=== PATIENT | female | born 1940 | race Hispanic/Latino ===

== ENCOUNTER 2024-03-10 11:45 | Emergency (ER) | payer OTHER ==
--- OUTSIDE RECORDS SUMMARY | 2024-03-10 11:52 | XMS REPORT | Continuity of Care Document ---
Author Name Unknown Address [address] [facility] [address] [place] [address] [facility] thconnect Address [address] [facility] [place] [address] Care Team Providers Care Rehabilitation Counsellor Name Role Phone Mikael Bateman Primary Care Physician [phone] Mikael Bateman Attending Clinician Unavailable MICKEY COLMENARES Attending Clinician Unavailable [email or web address] Attending Clinician UnavailMARIELA Sequeira Attending Clinician Unavailable Leyda Abel MA Attending Clinician Unavailab Danii OBANDO, Mili Koroma Attending Clinician Unavail Joanna Montes De Oca RN Attending Clinician Miguel burks CO19, NURSE-BRAXTON Attending Clinician UnavailMICKEY Vigil M.D. Attending Clinician Shell guadalupe [email or web address] Admitting Clinician Miguel burks Payers Payer Name Policy Type Policy Number Effective Date Expirati on Date Source MEDICARE PART A AND B [id number] 2006 00:00:00 2006 00:00:00 [employer] MEDICARE PPO [id number] 2022 00:00:00 MEDICARE BECKI HALEY [id number] [facility] A[employer] C1 [id number] [facility] Problems Condition Name Condition Details Condition Category Status Onset Date Resolution Date Last Treatment Date Treating Clinician Comments Source Vitamin B12 deficiency anemia Vitamin B12 deficiency anemia Disease Active 2020-09 00:00: 00 [facility] Major depressive disorder, single episode, unspecifie d Major depressive disorder, single episode, unspecifie d Disease Active 2020-09 00:00: 00 [facility] Encounter for administra tion of COVID-19 vaccine Encounter for administra tion of COVID-19 vaccine Disease Active 11-01 00:00: 00 [facility] Disorder involving the immune mechanism, 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, unspecifie d Disease Active 2018-09 00:00: 00 [facility] Myositis, unspecifie d Myositis, unspecifie d Disease Active 2013-09 00:00: 00 [facility] Osteoarthr itis of multiple joints Osteoarthr itis of multiple joints Problem Active [facility] [id number] +5th digit eff 06/22/20*CK D (chronic kidney disease), stage III Problem Active [facility] Malaise and fatigue Malaise and fatigue Problem Active [facility] [id number] Current moderate episode of major depressive disorder without prior episode Problem Active [facility] Gastro-eso phageal reflux disease without esophagiti s Gastro-eso phageal reflux disease without esophagiti s Problem Active [facility] Rheumatoid arthritis Rheumatoid arthritis Problem Active [facility] Hyperlipid emia Hyperlipid emia Problem Active [facility] 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 Vitamin B12 deficiency anemia Problem Active [facility] [id number] Anemia, unspecifie d type Problem Active [facility] [id number] Anorexia Problem Active [facility] Depression Depression Problem Active [facility] Vitamin D deficiency Vitamin D deficiency Problem Active [facility] Myalgia and myositis Myalgia and myositis [facility] Vitamin D deficiency Vitamin D deficiency Problem Active [facility] Rheumatoid arthritis Rheumatoid arthritis Problem Active [facility] Immunosupp ression Immunosupp ression Problem Active [facility] Encounter for administra tion of COVID-19 vaccine Encounter for administra tion of COVID-19 vaccine Problem Active [facility] Social History Social Habit Start Date Stop Date Quantity Comments Source History of Tobacco Use [facility] Sex Assigned At [facility] Sexual orientation [facility] Alcohol intake 2023-08-18 00:00:00 2023-08-18 00:00:00 Lifetime non-drinker (finding) [facility] History of Social function 2023-08-18 00:00:00 2023-08-18 00:00:00 [facility] Exposure to SARS-CoV-2 (event) 2023-02-01 00:00:00 2023-02-11 09:42:00 Not sure [facility] Tobacco use and exposure 2021-08-14 00:00:00 2021-08-14 00:00:00 Smokeless tobacco non-user [facility] Smoking Status Start Date Stop Date Source Tobacco smoking consumption unknown [facility] Never smoked tobacco [facility] Medications Ordered Medication Name Filled Medication Name Start Date Stop Date Current Medication? Ordering Clinician Indication Dosage Frequency Signature (SIG) Comments Components Source folic acid (Folvite) 1 MG tablet 2022-09 00:00: 00 Yes [id number] 2000ug QD Take 2 tablets (2,000 mcg total) by mouth 1 (one) time each day. [facility] meloxicam (Mobic) 7.5 MG tablet 2022-09 00:00: 00 Yes [id number] TAKE 1 TABLET BY MOUTH TWICE A DAY IF NEEDED FOR MILD PAIN. [facility] methotrexat e 2.5 MG tablet 2022-09 00:00: 00 Yes [id number] 10mg Take 4 tablets (10 mg total) by mouth 1 (one) time per week. Follow directions carefully, and ask to explain any part you do not understand . Take exactly as directed. [facility] tiZANidine (Zanaflex) 4 MG tablet 2022-09 00:00: 00 Yes [id number] 4mg QD Take 1 tablet (4 mg total) by mouth at night if needed for muscle spasms. [facility] methotrexat e 2.5 MG tablet 02-11 00:00: 00 08-18 00:00 :00 No [id number] 10mg Take 4 tablets (10 mg total) by mouth 1 (one) time per week. Follow directions carefully, and ask to explain any part you do not understand . Take exactly as directed. [facility] folic acid (Folvite) 1 MG tablet 02-11 00:00: 00 08-18 00:00 :00 No [id number] 2000ug QD Take 2 tablets (2,000 mcg total) by mouth 1 (one) time each day. [facility] methotrexat e 2.5 MG tablet 01-28 00:00: 00 02-11 00:00 :00 No [id number] TAKE 4 TABLETS BY MOUTH ONE TIME PER WEEK [facility] tiZANidine (Zanaflex) 4 MG tablet 01-14 00:00: 00 08-18 00:00 :00 No [id number] 4mg QD TAKE 1 TABLET (4 MG TOTAL) BY MOUTH AT NIGHT IF NEEDED FOR MUSCLE SPASMS. [facility] meloxicam (Mobic) 7.5 MG tablet 12-13 00:00: 00 08-18 00:00 :00 No [id number] TAKE 1 TABLET BY MOUTH TWICE A DAY IF NEEDED FOR MILD PAIN. [facility] Cobalamin Combination s (Vitamin Q37-Cogmg Acid) 500-400 MCG tablet 2021-09 13:46: 44 Yes one [facility] meloxicam (Mobic) 7.5 MG tablet 2021-09 00:00: 00 Yes [id number] 7.5mg Q.5D Take 1 tablet (7.5 mg total) by mouth 2 (two) times a day if needed for mild pain. [facility] methotrexat e 2.5 MG tablet 2021-09 00:00: 00 Yes [id number] TAKE 4 TABLETS BY MOUTH ONE TIME PER WEEK [facility] tiZANidine (Zanaflex) 4 MG tablet 2021-09 00:00: 00 Yes [id number] 4mg QD Take 1 tablet (4 mg total) by mouth at night if needed for muscle spasms. [facility] folic acid (Folvite) 1 MG tablet 2021-09 00:00: 00 02-11 00:00 :00 No [id number] 2000ug QD Take 2 tablets (2,000 mcg total) by mouth 1 (one) time each day. [facility] Cobalamin Combination s (Vitamin I50-Fhemd Acid) 500-400 MCG tablet 02-11 15:09: 16 Yes one [facility] meloxicam (Mobic) 7.5 MG tablet 02-11 15:09: 16 Yes 1 tablet [facility] citalopram (CeleXA) 10 MG tablet 02-11 15:08: 37 02-11 00:00 :00 No 10mg 10 mg. [facility] raNITIdine HCl (ZANTAC PO) 02-11 15:07: 58 02-11 00:00 :00 No TAKE 1 TABLET BY MOUTH TWICE A DAY [facility] methotrexat e 2.5 MG tablet 02-11 00:00: 00 Yes [id number] TAKE 4 TABLETS BY MOUTH ONCE A WEEK [facility] folic acid (Folvite) 1 MG tablet 02-11 00:00: 00 Yes [id number] 2000ug QD Take 2 tablets (2,000 mcg total) by mouth 1 (one) time each day. [facility] tiZANidine (Zanaflex) 2 MG tablet 02-11 00:00: 00 08-18 00:00 :00 No [id number] 4mg Take 2 tablets (4 mg total) by mouth every night. [facility] prednisoLON E acetate (Pred-Forte ) 1 % ophthalmic suspension 3-22 00:00: 00 02-11 00:00 :00 No INSTILL 1 DROP IN RIGHT EYE DAILY FOR ONE WEEK THEN STOP [facility] tiZANidine (Zanaflex) 2 MG tablet 2-04 00:00: 00 02-11 00:00 :00 No [id number] 2mg TAKE 1 TABLET (2 MG TOTAL) BY MOUTH EVERY NIGHT. [facility] Diclofenac Sodium (Voltaren) 1 % external gel 1-17 00:00: 00 Yes [id number] APPLY 2G TO 4 GM TO AFFECTED JOINTS NEEDED FOR PAIN EVERY 6 HOURS NEEDED [facility] methotrexat e 2.5 MG tablet 2020-09 2-15 00:00: 00 02-11 00:00 :00 No [id number] TAKE 4 TABLETS BY MOUTH ONCE A WEEK [facility] tiZANidine (Zanaflex) 2 MG tablet 05-07 00:00: 00 Yes [id number] 2mg TAKE 1 TABLET (2 MG TOTAL) BY MOUTH EVERY NIGHT. [facility] methotrexat e 2.5 MG tablet 03-28 00:00: 00 06-27 04:59 :00 No [id number] TAKE 4 TABLETS BY MOUTH ONCE A WEEK [facility] Cobalamin Combination s (Vitamin O10-Jatcn Acid) 500-400 MCG tablet 02-13 18:08: 33 Yes one [facility] meloxicam (Mobic) 7.5 MG tablet 02-13 18:08: 33 Yes 1 tablet [facility] raNITIdine HCl (ZANTAC PO) 02-13 18:08: 31 Yes TAKE 1 TABLET BY MOUTH TWICE A DAY [facility] citalopram (CeleXA) 10 MG tablet 02-13 18:06: 55 Yes 10mg 10 mg. [facility] Cobalamin Combination s (Vitamin Q21-Stnlh Acid) 500-400 MCG tablet 02-13 13:08: 33 Yes one [facility] meloxicam (Mobic) 7.5 MG tablet 02-13 13:08: 33 Yes 1 tablet [facility] raNITIdine HCl (ZANTAC PO) 02-13 13:08: 31 Yes TAKE 1 TABLET BY MOUTH TWICE A DAY [facility] citalopram (CeleXA) 10 MG tablet 02-13 13:06: 55 Yes 10mg 10 mg. [facility] tiZANidine (Zanaflex) 2 MG tablet 02-13 00:00: 00 05-07 00:00 :00 No [id number] 2mg Take 1 tablet (2 mg total) by mouth every night. [facility] methotrexat e 2.5 MG tablet 01-02 00:00: 00 03-28 00:00 :00 No 10mg Take 10 mg by mouth 1 (one) time per week [facility] folic acid (Folvite) 1 MG tablet 12-26 00:00: 00 Yes 2000ug QD Take 2,000 mcg by mouth 1 (one) time each day. [facility] tolterodine LA (Detrol LA) 4 MG 24 hr capsule 9-08 00:00: 00 02-11 00:00 :00 No QD Take by mouth 1 (one) time each day. [facility] tolterodine LA (Detrol LA) 2 MG 24 hr capsule 6-30 00:00: 00 02-11 00:00 :00 No QD Take by mouth 1 (one) time each day. [facility] zoster vaccine-rec ombinant adjuvanted (Shingrix) 50 MCG/0.5ML vaccine 2018-0918 00:00: 00 02-11 00:00 :00 No Inject one dose IM and another dose 2 months later by healthcare provider [facility] traMADol HCl - 50 MG Oral Tablet traMADol HCl - 50 MG Oral Tablet 2016-09 00:00: 00 Yes MICKEY COLMENARES M.D. 1 QD TAKE 1 TABLET DAILY PRN pain [facility] VESIcare 5 MG Oral Tablet VESIcare 5 MG Oral Tablet 02-21 00:00: 00 Yes [facility] Atorvastati n Calcium 10 MG Oral Tablet Atorvastati n Calcium 10 MG Oral Tablet 02-21 00:00: 00 Yes [facility] Vitamin D (Ergocalcif christ) 1.25 MG (66132 UT) Oral Capsule Vitamin D (Ergocalcif christ) 1.25 MG (80513 [facility]) Oral Capsule 03-14 00:00: 00 Yes MICKEY COLMENARES M.D. TAKE 1 CAPSULE WEEKLY. [facility] Methotrexat e 2.5 MG Oral Tablet Methotrexat e 2.5 MG Oral Tablet 2013-09 00:00: 00 Yes MICKEY COLMENARES M.D. TAKE 4 TABLETS BY MOUTH ONCE A WEEK [facility] Folic Acid 1 MG Oral Tablet Folic Acid 1 MG Oral Tablet 2013-09 00:00: 00 Yes MICKEY COLMENARES M.D. TAKE 2 TABLETS BY MOUTH EVERY DAY [facility] Cyclobenzap rine HCl - 5 MG Oral Tablet Cyclobenzap rine HCl - 5 MG Oral Tablet 2013-09 00:00: 00 Yes MICKEY COLMENARES M.D. 1 TAKE 1 TABLET BEDTIME PRN [facility] Meloxicam 7.5 MG Oral Tablet Meloxicam 7.5 MG Oral Tablet 2013-09 00:00: 00 Yes MICKEY COLMENARES M.D. Q0.5D TAKE 1 TABLET BY MOUTH TWICE DAILY NEEDED FOR PAIN AFTER MEALS [facility] Lipitor 20 MG Lipitor 20 MG No 1{table t} QD Lipitor 20 MG Cyclobenzap rine HCl 5 MG Cyclobenzap rine HCl 5 MG No 1{table t_as_ne eded} TID Cyclobenza chico HCl 5 MG Atorvastati n Calcium 20 MG Atorvastati n Calcium 20 MG No Atorvastat in Calcium 20 MG Mobic 7.5 MG Mobic 7.5 MG No 1{table t} QD Mobic 7.5 MG Vitamin B12 2500 Vitamin B12 2500 No QD Vitamin B12 2500 Folic Acid 1 MG Folic Acid 1 MG No 1{table t} QD Folic Acid 1 MG Citalopram Hydrobromid e 40 MG Citalopram Hydrobromid e 40 MG No 1{table t} QD Citalopram Hydrobromi de 40 MG Lipitor 20 MG Lipitor 20 MG No 1{table t} QD Lipitor 20 MG Cyclobenzap rine HCl 5 MG Cyclobenzap rine HCl 5 MG No 1{table t_as_ne eded} TID Cyclobenza chico HCl 5 MG Atorvastati n Calcium 20 MG Atorvastati n Calcium 20 MG No Atorvastat in Calcium 20 MG Mobic 7.5 MG Mobic 7.5 MG No 1{table t} QD Mobic 7.5 MG Folic Acid 1 MG Folic Acid 1 MG No 1{table t} QD Folic Acid 1 MG Vitamin B12 Vitamin B12 Yes Mikael Bateman one [facility] Mobic Mobic Yes Mikael Bateman 1 tablet [facility] Cyclobenzap rine HCl Cyclobenzap rine HCl Yes Mikael Bateman 1 tablet as needed [facility] Methotrexat e Methotrexat e Yes Mikael Bateman not defined [facility] Zantac Zantac Yes Mikael Bateman TAKE 1 TABLET BY MOUTH TWICE A DAY [facility] Folic Acid Folic Acid Yes Mikael Batemna 1 tablet [facility] Lipitor Lipitor Yes Mikael Bateman TAKE 1 TABLET AT BEDTIME [facility] Lipitor Lipitor Yes Mikael Bateman 1 tablet [facility] Citalopram Hydrobromid e Citalopram Hydrobromid e Yes Mikael Bateman 1 tablet [facility] Atorvastati n Calcium Atorvastati n Calcium Yes Mikael Bateman TAKE 1 TABLET AT BEDTIME [facility] Zantac 150 MG Zantac 150 MG No Zantac 150 MG tiZANidine HCl 4 MG tiZANidine HCl 4 MG No 1{table t_as_ne eded} TID tiZANidine HCl 4 MG Folic Acid 1 MG Folic Acid 1 MG No 1{table t} QD Folic Acid 1 MG Zantac 150 MG Zantac 150 MG No Zantac 150 MG Cyclobenzap rine HCl 5 MG Cyclobenzap rine HCl 5 MG No 1{table t_as_ne eded} TID Cyclobenza chico HCl 5 MG Mobic 7.5 MG Mobic 7.5 MG No 1{table t} QD Mobic 7.5 MG Atorvastati n Calcium 20 MG Atorvastati n Calcium 20 MG No Atorvastat in Calcium 20 MG Citalopram Hydrobromid e 40 MG Citalopram Hydrobromid e 40 MG No 1{table t} QD Citalopram Hydrobromi de 40 MG Zantac 150 MG Zantac 150 MG No Zantac 150 MG Cyclobenzap rine HCl 5 MG Cyclobenzap rine HCl 5 MG No 1{table t_as_ne eded} TID Cyclobenza chico HCl 5 MG Lipitor 20 MG Lipitor 20 MG No 1{table t} QD Lipitor 20 MG Folic Acid 1 MG Folic Acid 1 MG No 1{table t} QD Folic Acid 1 MG Mobic 7.5 MG Mobic 7.5 MG No 1{table t} QD Mobic 7.5 MG Citalopram Hydrobromid e 40 MG Citalopram Hydrobromid e 40 MG No 1{table t} QD Citalopram Hydrobromi de 40 MG Lipitor 20 MG Lipitor 20 MG No 1{table t} QD Lipitor 20 MG Cyclobenzap rine HCl 5 MG Cyclobenzap rine HCl 5 MG No 1{table t_as_ne eded} TID Cyclobenza chico HCl 5 MG Atorvastati n Calcium 20 MG Atorvastati n Calcium 20 MG No Atorvastat in Calcium 20 MG Mobic 7.5 MG Mobic 7.5 MG No 1{table t} QD Mobic 7.5 MG Vitamin B12 2500 Vitamin B12 2500 No QD Vitamin B12 2500 Folic Acid 1 MG Folic Acid 1 MG No 1{table t} QD Folic Acid 1 MG Citalopram Hydrobromid e 40 MG Citalopram Hydrobromid e 40 MG No 1{table t} QD Citalopram Hydrobromi de 40 MG Immunizations Ordered Immunization Name Filled Immunization Name Date Status Comments Source Fluzone Fluzone 2021-08-13 09:01:00 Completed [facility] Influenza, seasonal, injectable 2021-08-13 00:00:00 Completed [facility] Influenza, seasonal, injectable 2021-08-13 00:00:00 Completed [facility] Influenza, seasonal, injectable 2021-08-13 00:00:00 Completed [facility] [employer] COVID-19 Vacc 30 MCG/0.3ML Intramuscular Suspension 2020-11-26 15:10:00 Completed [facility] Covid-19 Pfizer SARS-CoV-2 Vaccination 2020-11-26 00:00:00 Completed [facility] Covid-19 Pfizer SARS-CoV-2 Vaccination 2020-11-26 00:00:00 Completed [facility] Covid-19 Pfizer SARS-CoV-2 Vaccination 2020-11-26 00:00:00 Completed [facility] COVID-19 Pfizer 12 & Over Vaccination (PURPLE-DILUTE) 2020-11-26 00:00:00 Completed [facility] COVID-19 Pfizer 12 & Over Vaccination (PURPLE-DILUTE) 2020-11-26 00:00:00 Completed [facility] COVID-19 Pfizer 12 & Over Vaccination (PURPLE-DILUTE) 2020-11-26 00:00:00 Completed [facility] Covid-19 Pfizer SARS-CoV-2 Vaccination 2020-11-26 00:00:00 Completed [facility] COVID-19 Pfizer 12 & Over Vaccination (PURPLE-DILUTE) 2020-11-26 00:00:00 Completed [facility] COVID-19 Pfizer 12 & Over Vaccination (PURPLE-DILUTE) 2020-11-26 00:00:00 Completed [facility] COVID-19 Pfizer 12 & Over Vaccination (PURPLE-DILUTE) 2020-11-26 00:00:00 Completed [facility] COVID-19 Pfizer 12 & Over Vaccination (PURPLE-DILUTE) 2020-11-26 00:00:00 Completed [facility] COVID-19 Pfizer 12 & Over Vaccination (PURPLE-DILUTE) 2020-11-26 00:00:00 Completed [facility] Covid-19 Pfizer SARS-CoV-2 Vaccination 2020-11-26 00:00:00 Completed [facility] Covid-19 Pfizer SARS-CoV-2 Vaccination 2020-11-26 00:00:00 Completed [facility] [employer] COVID-19 Vacc 30 MCG/0.3ML Intramuscular Suspension 2020-11-01 13:00:00 Completed [facility] Covid-19 Pfizer SARS-CoV-2 Vaccination 2020-11-01 00:00:00 Completed [facility] Covid-19 Pfizer SARS-CoV-2 Vaccination 2020-11-01 00:00:00 Completed [facility] Covid-19 Pfizer SARS-CoV-2 Vaccination 2020-11-01 00:00:00 Completed [facility] COVID-19 Pfizer 12 & Over Vaccination (PURPLE-DILUTE) 2020-11-01 00:00:00 Completed [facility] COVID-19 Pfizer 12 & Over Vaccination (PURPLE-DILUTE) 2020-11-01 00:00:00 Completed [facility] COVID-19 Pfizer 12 & Over Vaccination (PURPLE-DILUTE) 2020-11-01 00:00:00 Completed [facility] Covid-19 Pfizer SARS-CoV-2 Vaccination 2020-11-01 00:00:00 Completed [facility] COVID-19 Pfizer 12 & Over Vaccination (PURPLE-DILUTE) 2020-11-01 00:00:00 Completed [facility] COVID-19 Pfizer 12 & Over Vaccination (PURPLE-DILUTE) 2020-11-01 00:00:00 Completed [facility] COVID-19 Pfizer 12 & Over Vaccination (PURPLE-DILUTE) 2020-11-01 00:00:00 Completed [facility] COVID-19 Pfizer 12 & Over Vaccination (PURPLE-DILUTE) 2020-11-01 00:00:00 Completed [facility] COVID-19 Pfizer 12 & Over Vaccination (PURPLE-DILUTE) 2020-11-01 00:00:00 Completed [facility] Covid-19 Pfizer SARS-CoV-2 Vaccination 2020-11-01 00:00:00 Completed [facility] Covid-19 Pfizer SARS-CoV-2 Vaccination 2020-11-01 00:00:00 Completed [facility] Fluzone High-Dose 0.5 ML Intramuscular Suspension Prefilled Syringe 2020-07-07 11:12:00 Completed [facility] Influenza, High Dose Seasonal, Preservative Free 2020-07-07 00:00:00 Completed [facility] Influenza, High Dose Seasonal, Preservative Free 2020-07-07 00:00:00 Completed [facility] Influenza, High Dose Seasonal 2020-07-07 00:00:00 Completed [facility] Influenza, High Dose Seasonal (fluzone) 2020-07-07 00:00:00 Completed [facility] Influenza, High Dose Seasonal (fluzone) 2020-07-07 00:00:00 Completed [facility] Influenza, High Dose Seasonal (fluzone) 2020-07-07 00:00:00 Completed [facility] Influenza, High Dose Seasonal (fluzone) 2020-07-07 00:00:00 Completed [facility] Influenza, High Dose Seasonal, Preservative Free 2020-07-07 00:00:00 Completed [facility] Influenza, High Dose Seasonal (fluzone) 2020-07-07 00:00:00 Completed [facility] Influenza, High Dose Seasonal (fluzone) 2020-07-07 00:00:00 Completed [facility] Influenza, High Dose Seasonal (fluzone) 2020-07-07 00:00:00 Completed [facility] Influenza, High Dose Seasonal (fluzone) 2020-07-07 00:00:00 Completed [facility] Influenza, High Dose Seasonal, Preservative Free 2020-07-07 00:00:00 Completed [facility] Influenza, High Dose Seasonal, Preservative Free 2020-07-07 00:00:00 Completed [facility] FluAD FluAD 2019-08-06 10:57:00 Completed [facility] FluAD FluAD 2019-08-06 00:00:00 Completed [facility] Influenza, injectable, quadrivalent 2019-08-06 00:00:00 Completed [facility] Influenza, injectable, quadrivalent 2019-08-06 00:00:00 Completed [facility] Influenza, injectable, quadrivalent 2019-08-06 00:00:00 Completed [facility] Influenza, injectable, quadrivalent 2019-08-06 00:00:00 Completed [facility] Influenza, injectable, quadrivalent 2019-08-06 00:00:00 Completed [facility] Influenza, injectable, quadrivalent 2019-08-06 00:00:00 Completed [facility] Influenza, trivalent, adjuvanted 2019-08-06 00:00:00 Completed [facility] Influenza, injectable, quadrivalent 2019-08-06 00:00:00 Completed [facility] Influenza, trivalent, adjuvanted 2019-08-06 00:00:00 Completed [facility] Influenza, injectable, quadrivalent 2019-08-06 00:00:00 Completed [facility] Influenza, trivalent, adjuvanted 2019-08-06 00:00:00 Completed [facility] Fluzone Quadrivalent 0.5 ML Intramuscular Suspension 2018-06-29 11:15:00 Completed [facility] Influenza, injectable, quadrivalent, preservative free 2018-06-29 00:00:00 Completed [facility] Influenza, injectable, quadrivalent, preservative free 2018-06-29 00:00:00 Completed [facility] Influenza, injectable, quadrivalent, preservative free 2018-06-29 00:00:00 Completed [facility] Influenza, injectable, quadrivalent, preservative free (afluria, fluarix, flulaval, fluzone) 2018-06-29 00:00:00 Completed [facility] Influenza, injectable, quadrivalent, preservative free (afluria, fluarix, flulaval, fluzone) 2018-06-29 00:00:00 Completed [facility] Influenza, injectable, quadrivalent, preservative free (afluria, fluarix, flulaval, fluzone) 2018-06-29 00:00:00 Completed [facility] Influenza, injectable, quadrivalent, preservative free (afluria, fluarix, flulaval, fluzone) 2018-06-29 00:00:00 Completed [facility] Influenza, injectable, quadrivalent, preservative free (afluria, fluarix, flulaval, fluzone) 2018-06-29 00:00:00 Completed [facility] Influenza, injectable, quadrivalent, preservative free 2018-06-29 00:00:00 Completed [facility] Influenza, injectable, quadrivalent, preservative free (afluria, fluarix, flulaval, fluzone) 2018-06-29 00:00:00 Completed [facility] Influenza, injectable, quadrivalent, preservative free (afluria, fluarix, flulaval, fluzone) 2018-06-29 00:00:00 Completed [facility] Influenza, injectable, quadrivalent, preservative free (afluria, fluarix, flulaval, fluzone) 2018-06-29 00:00:00 Completed [facility] Influenza, injectable, quadrivalent, preservative free 2018-06-29 00:00:00 Completed [facility] Influenza, injectable, quadrivalent, preservative free 2018-06-29 00:00:00 Completed [facility] Fluzone High-Dose 0.5 ML Intramuscular Suspension Prefilled Syringe 2017-06-23 15:05:00 Completed [facility] Influenza, High Dose Seasonal, Preservative Free 2017-06-23 00:00:00 Completed [facility] Influenza, High Dose Seasonal, Preservative Free 2017-06-23 00:00:00 Completed [facility] Influenza, High Dose Seasonal 2017-06-23 00:00:00 Completed [facility] Influenza, High Dose Seasonal (fluzone) 2017-06-23 00:00:00 Completed [facility] Influenza, High Dose Seasonal (fluzone) 2017-06-23 00:00:00 Completed [facility] Influenza, High Dose Seasonal (fluzone) 2017-06-23 00:00:00 Completed [facility] Influenza, High Dose Seasonal (fluzone) 2017-06-23 00:00:00 Completed [facility] Influenza, High Dose Seasonal, Preservative Free 2017-06-23 00:00:00 Completed [facility] Influenza, High Dose Seasonal (fluzone) 2017-06-23 00:00:00 Completed [facility] Influenza, High Dose Seasonal (fluzone) 2017-06-23 00:00:00 Completed [facility] Influenza, High Dose Seasonal (fluzone) 2017-06-23 00:00:00 Completed [facility] Influenza, High Dose Seasonal (fluzone) 2017-06-23 00:00:00 Completed [facility] Influenza, High Dose Seasonal, Preservative Free 2017-06-23 00:00:00 Completed [facility] Influenza, High Dose Seasonal, Preservative Free 2017-06-23 00:00:00 Completed [facility] Fluzone High-Dose 0.5 ML Intramuscular Suspension Prefilled Syringe 2016-06-24 11:34:00 Completed [facility] Influenza, High Dose Seasonal, Preservative Free 2016-06-24 00:00:00 Completed [facility] Influenza, High Dose Seasonal, Preservative Free 2016-06-24 00:00:00 Completed [facility] Influenza, High Dose Seasonal 2016-06-24 00:00:00 Completed [facility] Influenza, High Dose Seasonal (fluzone) 2016-06-24 00:00:00 Completed [facility] Influenza, High Dose Seasonal (fluzone) 2016-06-24 00:00:00 Completed [facility] Influenza, High Dose Seasonal (fluzone) 2016-06-24 00:00:00 Completed [facility] Influenza, High Dose Seasonal (fluzone) 2016-06-24 00:00:00 Completed [facility] Influenza, High Dose Seasonal (fluzone) 2016-06-24 00:00:00 Completed [facility] Influenza, High Dose Seasonal, Preservative Free 2016-06-24 00:00:00 Completed [facility] Influenza, High Dose Seasonal (fluzone) 2016-06-24 00:00:00 Completed [facility] Influenza, High Dose Seasonal (fluzone) 2016-06-24 00:00:00 Completed [facility] Influenza, High Dose Seasonal (fluzone) 2016-06-24 00:00:00 Completed [facility] Influenza, High Dose Seasonal, Preservative Free 2016-06-24 00:00:00 Completed [facility] Influenza, High Dose Seasonal, Preservative Free 2016-06-24 00:00:00 Completed [facility] Fluzone High-Dose SUSP 2015-06-27 10:53:00 Completed [facility] Influenza, High Dose Seasonal, Preservative Free 2015-06-27 00:00:00 Completed [facility] Influenza, High Dose Seasonal, Preservative Free 2015-06-27 00:00:00 Completed [facility] Influenza, High Dose Seasonal 2015-06-27 00:00:00 Completed [facility] Influenza, High Dose Seasonal (fluzone) 2015-06-27 00:00:00 Completed [facility] Influenza, High Dose Seasonal (fluzone) 2015-06-27 00:00:00 Completed [facility] Influenza, High Dose Seasonal (fluzone) 2015-06-27 00:00:00 Completed [facility] Influenza, High Dose Seasonal (fluzone) 2015-06-27 00:00:00 Completed [facility] Influenza, High Dose Seasonal (fluzone) 2015-06-27 00:00:00 Completed [facility] Influenza, High Dose Seasonal, Preservative Free 2015-06-27 00:00:00 Completed [facility] Influenza, High Dose Seasonal (fluzone) 2015-06-27 00:00:00 Completed [facility] Influenza, High Dose Seasonal (fluzone) 2015-06-27 00:00:00 Completed [facility] Influenza, High Dose Seasonal (fluzone) 2015-06-27 00:00:00 Completed [facility] Influenza, High Dose Seasonal, Preservative Free 2015-06-27 00:00:00 Completed [facility] Influenza, High Dose Seasonal, Preservative Free 2015-06-27 00:00:00 Completed [facility] Influenza 2014-08-22 15:06:00 Completed [facility] Influenza, Unspecified 2014-08-22 00:00:00 Completed [facility] Influenza, Unspecified 2014-08-22 00:00:00 Completed [facility] Influenza, Unspecified 2014-08-22 00:00:00 Completed [facility] Influenza, Unspecified 2014-08-22 00:00:00 Completed [facility] Influenza, Unspecified 2014-08-22 00:00:00 Completed [facility] Influenza, Unspecified 2014-08-22 00:00:00 Completed [facility] Influenza, Unspecified 2014-08-22 00:00:00 Completed [facility] Influenza, Unspecified 2014-08-22 00:00:00 Completed [facility] Influenza, Unspecified 2014-08-22 00:00:00 Completed [facility] Influenza, Unspecified 2014-08-22 00:00:00 Completed [facility] Influenza, Unspecified 2014-08-22 00:00:00 Completed [facility] Influenza, Unspecified 2014-08-22 00:00:00 Completed [facility] Influenza, Unspecified 2014-08-22 00:00:00 Completed [facility] Influenza, Unspecified 2014-08-22 00:00:00 Completed [facility] FluAD FluAD Unknown Completed [facility] Fluzone Fluzone Unknown Completed [facility] FluAD FluAD Unknown [facility]pleted [facility] Fluzone Fluzone Unknown Completed [facility] FluAD FluAD Unknown Completed [facility] Fluzone Fluzone Unknown Completed [facility] FluAD FluAD Unknown Completed [facility] Fluzone Fluzone Unknown Completed [facility] COVID-19 Pfizer 12 & Over Vaccination (PURPLE-DILUTE) Unknown Completed [facility] COVID-19 Pfizer 12 & Over Vaccination (PURPLE-DILUTE) Unknown Completed [facility] Influenza, High Dose Seasonal (fluzone) Unknown Completed [facility] Influenza, High Dose Seasonal (fluzone) Unknown Completed [facility] Influenza, High Dose Seasonal (fluzone) Unknown Completed [facility] Influenza, High Dose Seasonal (fluzone) Unknown Completed [facility] Influenza, injectable, quadrivalent, preservative free (afluria, fluarix, flulaval, fluzone) Unknown Completed [facility] Influenza, Unspecified Unknown Completed [facility] Influenza, injectable, quadrivalent Unknown Completed [facility] Influenza, trivalent, adjuvanted Unknown Completed [facility] Influenza, seasonal, injectable Unknown Completed [facility] COVID-19 Pfizer 12 & Over Vaccination (PURPLE-DILUTE) Unknown Completed [facility] COVID-19 Pfizer 12 & Over Vaccination (PURPLE-DILUTE) Unknown Completed [facility] Influenza, High Dose Seasonal (fluzone) Unknown Completed [facility] Influenza, High Dose Seasonal (fluzone) Unknown Completed [facility] Influenza, High Dose Seasonal (fluzone) Unknown Completed [facility] Influenza, High Dose Seasonal (fluzone) Unknown Completed [facility] Influenza, injectable, quadrivalent, preservative free (afluria, fluarix, flulaval, fluzone) Unknown Completed [facility] Influenza, Unspecified Unknown Completed [facility] Influenza, injectable, quadrivalent Unknown Completed [facility] Influenza, trivalent, adjuvanted Unknown Completed [facility] Influenza, seasonal, injectable Unknown Completed [facility] Vital Signs Vital Name Observation Time Observation Value Comments S ource height 2023-10-29 13:50:00 60 [in_i] [facility] weight 2023-10-29 13:50:00 103.8 [lb_av] [facility] temperature 2023-10-29 13:50:00 97.2 [degF] [facility] bmi 2023-10-29 13:50:00 20.27 kg/m2 [facility] oximetry 2023-10-29 13:50:00 97 % [facility] respiratory rate 2023-10-29 13:50:00 17 /min [facility] blood pressure systolic 2023-10-29 13:50:00 133 mm[Hg] [facility] blood pressure diastolic 2023-10-29 13:50:00 70 mm[Hg] [facility] height 2023-09-29 13:00:00 60 [in_i] [facility] weight 2023-09-29 13:00:00 104.8 [lb_av] [facility] temperature 2023-09-29 13:00:00 97.6 [degF] [facility] bmi 2023-09-29 13:00:00 20.47 kg/m2 [facility] oximetry 2023-09-29 13:00:00 93 % [facility] blood pressure systolic 2023-09-29 13:00:00 130 mm[Hg] [facility] blood pressure diastolic 2023-09-29 13:00:00 74 mm[Hg] [facility] height 2023-09-29 13:00:00 60 [in_i] [facility] weight 2023-09-29 13:00:00 104.8 [lb_av] [facility] temperature 2023-09-29 13:00:00 97.6 [degF] [facility] bmi 2023-09-29 13:00:00 20.47 kg/m2 [facility] oximetry 2023-09-29 13:00:00 93 % [facility] blood pressure systolic 2023-09-29 13:00:00 130 mm[Hg] [facility] blood pressure diastolic 2023-09-29 13:00:00 74 mm[Hg] [facility] Systolic blood pressure 2023-08-18 17:09:00 148 mm[Hg] [facility] Diastolic blood pressure 2023-08-18 17:09:00 71 mm[Hg] [facility] Heart rate 2023-08-18 17:09:00 71 /min [facility] Body temperature 2023-08-18 17:09:00 36.5 Amanda [facility] Body height 2023-08-18 17:09:00 152.4 cm [facility] Body weight 2023-08-18 17:09:00 48.081 kg [facility] BMI 2023-08-18 17:09:00 20.70 kg/m2 [facility] Systolic blood pressure 2023-02-11 15:17:00 163 mm[Hg] [facility] Diastolic blood pressure 2023-02-11 15:17:00 73 mm[Hg] [facility] Heart rate 2023-02-11 15:17:00 62 /min [facility] Body temperature 2023-02-11 15:17:00 36.61 Amanda [facility] Respiratory rate 2023-02-11 15:17:00 12 /min [facility] Body height 2023-02-11 15:17:00 152.4 cm [facility] Body weight 2023-02-11 15:17:00 48.535 kg [facility] BMI 2023-02-11 15:17:00 20.90 kg/m2 [facility] Oxygen saturation in Arterial blood by Pulse oximetry 2023-02-11 15:17:00 98 /min [facility] Systolic blood pressure 2022-02-11 18:02:00 144 mm[Hg] [facility] Diastolic blood pressure 2022-02-11 18:02:00 72 mm[Hg] [facility] Heart rate 2022-02-11 18:02:00 85 /min [facility] Body weight 2022-02-11 18:02:00 52.617 kg [facility] BMI 2022-02-11 18:02:00 22.65 kg/m2 [facility] Systolic blood pressure 2021-02-13 18:06:00 143 mm[Hg] [facility] Diastolic blood pressure 2021-02-13 18:06:00 72 mm[Hg] [facility] Heart rate 2021-02-13 18:06:00 61 /min [facility] Body temperature 2021-02-13 18:06:00 36.44 Amanda [facility] Body weight 2021-02-13 18:06:00 51.982 kg [facility] BMI 2021-02-13 18:06:00 22.38 kg/m2 [facility] Systolic blood pressure 2020-07-07 10:52:00 148 mm[Hg] Location: RUE; Position: Sitting [facility] Diastolic blood pressure 2020-07-07 10:52:00 74 mm[Hg] Location: RUE; Position: Sitting [facility] Body height 2020-07-07 10:52:00 60 [in_us] [facility] Weight 2020-07-07 10:52:00 116 [lb_av] [facility] Body mass index (BMI) [Ratio] 2020-07-07 10:52:00 22.66 kg/m2 [facility] Body temperature 2020-07-07 10:52:00 98.8 [degF] Method: Oral [facility] Heart Rate 2020-07-07 10:52:00 72 /min [facility] BP Systolic 2019-08-09 11:35:00 139 mm[Hg] Location: LUE; Position: Sitting [facility] BP Diastolic 2019-08-09 11:35:00 66 mm[Hg] Location: LUE; Position: Sitting [facility] Height 2019-08-09 11:35:00 60 [in_us] [facility] Weight 2019-08-09 11:35:00 113 [lb_av] [facility] Body Mass Index Calculated 2019-08-09 11:35:00 22.07 kg/m2 [facility] Temperature 2019-08-09 11:35:00 98 [degF] Method: Oral [facility] Heart Rate 2019-08-09 11:35:00 78 /min [facility] BP Systolic 2019-02-05 11:52:00 136 mm[Hg] Location: LUE; Position: Sitting [facility] BP Diastolic 2019-02-05 11:52:00 70 mm[Hg] Location: LUE; Position: Sitting [facility] Height 2019-02-05 11:52:00 60 [in_us] [facility] Weight 2019-02-05 11:52:00 107.25 [lb_av] [facility] Body Mass Index Calculated 2019-02-05 11:52:00 20.95 kg/m2 [facility] Temperature 2019-02-05 11:52:00 97.8 [degF] Method: Oral [facility] Heart Rate 2019-02-05 11:52:00 69 /min Location: L Brachial Artery; [facility] BP Systolic 2018-10-27 11:33:00 145 mm[Hg] Location: LUE; Position: Sitting [facility] BP Diastolic 2018-10-27 11:33:00 80 mm[Hg] Location: LUE; Position: Sitting [facility] Height 2018-10-27 11:33:00 60 [in_us] [facility] Weight 2018-10-27 11:33:00 111.375 [lb_av] [facility] Body Mass Index Calculated 2018-10-27 11:33:00 21.75 kg/m2 [facility] Temperature 2018-10-27 11:33:00 97.8 [degF] Method: Oral [facility] Heart Rate 2018-10-27 11:33:00 81 /min Location: L Brachial Artery; [facility] BP Systolic 2018-06-29 11:04:00 136 mm[Hg] Location: LUE; Position: Sitting [facility] BP Diastolic 2018-06-29 11:04:00 63 mm[Hg] Location: LUE; Position: Sitting [facility] Height 2018-06-29 11:04:00 60 [in_us] [facility] Weight 2018-06-29 11:04:00 110.25 [lb_av] [facility] Body Mass Index Calculated 2018-06-29 11:04:00 21.53 kg/m2 [facility] Temperature 2018-06-29 11:04:00 98.3 [degF] Method: Oral [facility] Heart Rate 2018-06-29 11:04:00 66 /min Location: L Brachial Artery; [facility] BP Systolic 2018-03-02 11:38:00 152 mm[Hg] Location: LUE; Position: Sitting [facility] BP Diastolic 2018-03-02 11:38:00 77 mm[Hg] Location: LUE; Position: Sitting [facility] Height 2018-03-02 11:38:00 60 [in_us] [facility] Weight 2018-03-02 11:38:00 108 [lb_av] [facility] Body Mass Index Calculated 2018-03-02 11:38:00 21.09 kg/m2 [facility] Temperature 2018-03-02 11:38:00 98 [degF] Method: Oral [facility] Heart Rate 2018-03-02 11:38:00 65 /min Location: L Brachial Artery; [facility] BP Systolic 2017-10-27 14:09:00 128 mm[Hg] Location: [facility]; Position: Sitting [facility] BP Diastolic 2017-10-27 14:09:00 78 mm[Hg] Location: [facility]; Position: Sitting [facility] Height 2017-10-27 14:09:00 60 [in_us] [facility] Weight 2017-10-27 14:09:00 108.125 [lb_av] [facility] Body Mass Index Calculated 2017-10-27 14:09:00 21.12 kg/m2 [facility] Temperature 2017-10-27 14:09:00 97.5 [degF] Method: Oral [facility] Heart Rate 2017-10-27 14:09:00 80 /min Location: L Brachial Artery; [facility] Procedures Procedure Date / Time Performed Performing Clinicia n Source COMPREHENSIVE METABOLIC PANEL 2023-08-18 [facility]-18 [facility] AND [facility] 2023-08-18 17:58[facility], AUTOMATED 2023-08-18 17:58[facility] HYDROXY 2023-08-18 17:58[facility]PRE[facility] METABOLIC PANEL 2023-02-11 15:39:00 [facility] C-REACTIVE PROTEIN 2023-02-11 15:39:[facility] AND DI[facility]ENTIAL 2023-02-11 15:39[facility], AUTOMATED 2023-02-11 15:39[facility] 25 HYDROXY 2023-02-11 15:39[facility] COMPRE[facility]ENS[facility] METABOLIC PANEL 2022-02-11 18:49[facility] 2022-02-11 18:49:00 [facility] CBC AND DIFFERENTIAL 2022-02-11 18:49[facility], AUTOMATED 2022-02-11 18:49:00 [facility] URINALYSIS WITH REFLEX MICROSCOPIC 2022-02-11 18:49:00 [facility] PROTEIN / CREATININE RATIO, URINE 2022-02-11 18:49:00 [facility] PROTEIN, TOTAL AND PROTEIN ELECTROPHORESIS WITH IMMUNOFIXATION 2022-02-11 18:49:00 [facility] [QL] CBC (INCLUDES DIFF/PLT) 2020-07-07 00:00:00 [facility] [QL] CMP W/EGFR 2020-07-07 00:00:00 [facility] [QL] C-REACTIVE PROTEIN 2020-07-07 00:00:00 [facility] [QL] SED RATE BY MODIFIED KENZIE 2020-07-07 00:00:00 [facility] [QL] CBC (INCLUDES DIFF/PLT) 2020-04-26 00:00:00 [facility] [QL] CMP W/EGFR 2020-04-26 00:00:00 [facility] [QLH] CBC (INCLUDES DIFF/PLT) 2019-02-05 00:00:00 [facility] [QLH] CMP W/EGFR 2019-02-05 00:00:00 [facility] [QLH] C-REACTIVE PROTEIN 2019-02-05 00:00:00 [facility] [QLH] SED RATE BY MODIFIED KENZIE 2019-02-05 00:00:00 [facility] [QLH] CBC (INCLUDES DIFF/PLT) 2018-10-27 00:00:00 [facility] [QLH] CMP W/EGFR 2018-10-27 00:00:00 [facility] [QLH] C-REACTIVE PROTEIN 2018-10-27 00:00:00 [facility] [QLH] SED RATE BY MODIFIED KENZIE 2018-10-27 00:00:00 [facility] [QLH] CBC (INCLUDES DIFF/PLT) 2018-06-29 00:00:00 [facility] [QLH] CMP W/EGFR 2018-06-29 00:00:00 [facility] [QLH] SED RATE BY MODIFIED KENZIE 2018-06-29 00:00:00 [facility] [QLH] C-REACTIVE PROTEIN 2018-06-29 00:00:00 [facility] [QLH] CBC (INCLUDES DIFF/PLT) 2018-03-02 00:00:00 [facility] [QLH] CMP W/EGFR 2018-03-02 00:00:00 [facility] [QLH] C-REACTIVE PROTEIN 2018-03-02 00:00:00 [facility] [QLH] SED RATE BY ROMELIA ESPINO 2018-03-02 00:00:00 [facility] [H] Immunofixation Eletrophoresis 2018-03-02 00:00:00 [facility] [H] Protein Electrophoresis 2018-03-02 00:00:00 [facility] [QLH] CMP W/EGFR 2017-10-27 00:00:00 [facility] [QLH] CBC (INCLUDES DIFF/PLT) 2017-10-27 00:00:00 [facility] [QLH] SED RATE BY ROMELIA ESPINO 2017-10-27 00:00:00 [facility] Plan of Care Planned Activity Planned Date Details Comments Source Diagnostic Test Pending 2019-05-07 00:00:00 [QLH ] CBC (INCLUDES DIFF/PLT) [code = [QLH] CBC (INCLUDES DIFF/PLT)] [facility] Diagnostic Test Pending 2019-05-07 00:00:00 [QLH ] CMP W/EGFR [code = [QLH] CMP W/EGFR] [facility] Diagnostic Test Pending 2019-05-07 00:00:00 [QLH ] CBC (INCLUDES DIFF/PLT) [code = [QLH] CBC (INCLUDES DIFF/PLT)] [facility] Diagnostic Test Pending 2019-05-07 00:00:00 [QLH ] CMP W/EGFR [code = [QLH] CMP W/EGFR] [facility] Encounters Start Date/Time End Date/Time Encounter Type Admission Type Attending Clinicians Care Facility Care Department Encounter ID Source 2023-09-25 10:49:00 Outpatient [place], [facility] [id number] [facility] 2023-02-11 09:42:03 Outpatient [facility] [id number] [facility] 2022-11-29 13:27:12 Outpatient [facility] [id number] [facility] 2022-11-28 11:44:53 Outpatient [facility] [id number] [facility] 2022-10-17 10:15:48 Outpatient [facility] [id number] [facility] 2022-10-16 10:29:52 Outpatient [facility] [id number] [facility] 2022-09-19 09:42:07 Outpatient [facility] [id number] [facility] 2022-08-19 13:35:05 Outpatient [facility] [id number] [facility] 2022-08-05 15:03:37 Outpatient [facility] [id number] [facility] 2021-10-17 11:37:01 Outpatient Fransico [facility] STLC STLC [id number] [facility] 2021-02-13 13:40:28 [id number] 2021-02-13 13:28:55 Outpatient [facility] [id number] [facility] 2024-02-17 11:30:00 2024-02-17 11:30:00 Outpatient COLMENARESLIBBYH [facility] [id number] [facility] 2023-10-29 00:00:00 2023-10-29 00:00:00 OFFICE VISIT ESTAB PT LEVEL 4 STLMLC STLMLC [id number] [facility] 2023-09-29 00:00:00 2023-09-29 00:00:00 OFFICE VISIT ESTAB PT LEVEL 4 STLMLC STLMLC [id number] [facility] 2023-09-29 00:00:00 2023-09-29 00:00:00 SUB ANNUAL [facility] VISIT STLMLC STLMLC [id number] [facility] 2023-08-25 00:00:00 2023-08-25 00:00:00 (TEL) STLMLC STLMLC [id number] [facility] 2023-08-18 11:30:00 2023-08-18 11:56:46 Office Visit Mickey Colmenares [facility] [id number] [facility] 2023-07-22 00:00:00 2023-07-22 00:00:00 Outpatient GC_GCBZW_Ka diyala_S PRIV PRIV [id number] [facility] 2023-07-21 00:00:00 2023-07-21 00:00:00 Outpatient GC_GCBZW_Ka diyala_S PRIV PRIV [id number] [facility] 2023-06-26 14:30:00 2023-06-26 14:30:00 Outpatient MARIELA CALLE [facility] [id number] [facility] 2023-02-11 10:30:00 2023-02-11 10:41:56 Office Visit ColmenaresMickey london [facility] [id number] [facility] 2022-12-05 14:30:00 2022-12-05 14:30:00 External Contact MARIELA CALLE EXT MSRDP LOCATION [id number] [facility] 2022-10-21 13:30:00 2022-10-21 13:30:00 External Contact MARIELA CALLE EXT MSRDP LOCATION [id number] [facility] 2022-08-19 14:00:00 2022-08-19 15:14:33 Outpatient MICKEY COLMENARES [facility] [id number] [facility] 2022-02-19 00:00:00 2022-02-19 00:00:00 Telephone Leyda bAel Jennifer UTP [facility] [id number] [facility] 2022-02-14 00:00:00 2022-02-14 00:00:00 Telephone Leyda Abel Jennifer [facility]TP [facility] [id number] [facility] 2022-02-11 13:00:00 2022-02-11 13:41:58 Office Visit Mickey Colmenares [facility] [id number] [facility] 2021-08-13 00:00:00 2021-08-13 00:00:00 (INJ) [facility] [id number] [facility] 2021 00:00:00 2021 00:00:00 Refill Mickey Colmenares [facility] [id number] [facility] 2021-05-07 00:00:00 2021-05-07 00:00:00 Refill Mickey Colmenares [facility] [id number] [facility] 2021-03-24 00:00:00 2021-03-24 00:00:00 [facility] [address] [id number] [facility] 2021-02-20 00:00:00 2021-02-20 00:00:00 Telephone Mili Del Valle Blanca [facility] [id number] [facility] 2021-02-20 00:00:00 2021-02-20 00:00:[address] [facility] [id number] [facility] 2021-02-13 12:54:25 2021-02-13 13:42:06 Office Visit Mickey Colmenares [facility] [id number] [facility] 2020-11-26 15:10:00 2020-11-26 15:10:00 Appointmen t; CO19, NURSE-COOL EY CO19, NURSE-COOLE Y UTP UTP [id number] [facility] 2020-11-01 13:00:00 2020-11-01 13:00:00 Appointmen t; CO19, NURSE-COOL EY CO19, NURSE-COOLE Y UTP UTP [id number] [facility] 2020-07-07 11:00:00 2020-07-07 11:00:00 Appointmen t; MICKEY COLMENARES M.D. NGUYEN, BINH, M.D. [facility] [id number] [facility] 2020-05-05 11:30:00 2020-05-05 11:30:00 Appointmen t; MICKEY COLMENARES M.D. NGUYEN, BINH, M.D. [facility] [id number] [facility] 2020-05-03 11:00:00 2020-05-03 11:00:00 [facility] [id number] [facility] 2019-09-23 14:15:00 2019-09-23 14:15:00 [facility] [id number] [facility] 2019-09-13 07:59:00 2019-09-13 07:59:00 [facility] [id number] [facility] 2019-08-09 11:30:00 2019-08-09 11:30:00 Appointmen t; MICKEY COLMENARES M.D. NGUYEN, BINH, M.D. [facility] [id number] [facility] 2019-08-06 10:45:00 2019-08-06 10:45:00 [facility] [id number] [facility] 2019-06-14 11:30:00 2019-06-14 11:30:00 [facility] [address] [facility] [id number] [facility] [facility] 2019-05-11 09:45:00 2019-05-11 09:45:00 [facility] [address] [facility] [place] [facility] [id number] [facility] 2019-03-30 10:15:00 2019-03-30 10:15:00 [facility] [address] [facility] [place] [facility] [id number] [facility] 2019-02-05 11:30:00 2019-02-05 11:30:00 Appointmen t; MICKEY COLMENARES M.D. NGUYEN, BINH, M.D. [facility] [id number] [place] [facility] 2019-01-28 10:15:00 2019-01-28 10:15:00 [facility] [address] [facility] [place] [facility] [id number] [facility] 2018-11-27 09:00:00 2018-11-27 09:00:00 [facility] [address] [facility] [place] [facility] [id number] [facility] 2018-10-27 11:30:00 2018-10-27 11:30:00 Appointmen t; MICKEY COLMENARES M.D. NGUYEN, BINH, M.D. [facility] [id number] [place] [facility] 2018-06-29 11:30:00 2018-06-29 11:30:00 Appointmen t; MICKEY COLMENARES M.D. NGUYEN, BINH, M.D. [facility] [id number] [place] [facility] 2018-04-08 08:45:00 2018-04-08 08:45:00 [facility] [id number] [facility] 2018-03-02 11:30:00 2018-03-02 11:30:00 Appointmen t; MICKEY COLMENARES M.D. NGUYEN, BINH, M.D. [facility] [id number] [place] [facility] 2017-10-27 14:30:00 2017-10-27 14:30:00 Appointmen t; MICKEY COLMENARES M.D. NGUYEN, BINH, M.D. [facility] [id number] [place] [facility] 2017-06-23 14:30:00 2017-06-23 14:30:00 Appointmen t; MICKEY COLMENARES M.D. NGUYEN, BINH, M.D. [facility] [id number] [place] [facility] 2017-02-21 11:00:00 2017-02-21 11:00:00 Appointmen t; MICKEY COLMENARES M.D. NGUYEN, BINH, M.D. [facility] [id number] [place] [facility] 2016-10-25 11:00:00 2016-10-25 11:00:00 Appointmen t; MICKEY COLMENARES M.D. NGUYEN, BINH, M.D. [facility] UTP [id number] [place] [facility] 2016-06-24 11:30:00 2016-06-24 11:30:00 Appointmen t; MICKEY COLMENARES M.D. NGUYEN, BINH, M.D. [facility] [id number] [place] [facility] 2016-02-26 11:30:00 2016-02-26 11:30:00 Appointmen t; MICKEY COLMENARES M.D. NGUYEN, BINH, M.D. [facility] UTP [id number] [place] [facility] 2015-10-30 15:00:00 2015-10-30 15:00:00 Appointmen t; MICKEY COLMENARES M.D. NGUYEN, BINH, M.D. [facility] UTP [id number] [place] [facility] Results Test Description Test Time Test Comments Results Result Co mments Source HEMOGLOBIN [id number] 00:00:00* Test Item Value Reference Range Interpretation Comme nts HEMOGLOBIN A1c (test code = 4548-4) 5.4 % See_Comment [Automated [employer] The system which generated this result transmitted reference range: 4.2-5.6 %. The reference range was not used to interpret this result as normal/abnormal. TSH REFLEX TO FREE [id number] 00:00:00* Test Item Value Reference Range Interpretation Comme nts TSH REFLEX TO FREE T4 (test code = 77865-4) 1.180 UIU/ML See_Comment [Automated [employer] The system which generated this result transmitted reference range: 0.400-4.100 UIU/ML. The reference range was not used to interpret this result as normal/abnormal. VITAMIN D, 25 [id number] 00:00:00* Test Item Value Reference Range Interpretation Comme nts VITAMIN D, 25 OH (test code = 1989-3) 60 NG/ML SEE BELOW NG/ML URINALYSIS (CULTURE IF INDICATED)2023-09-29 00:00:00* Test Item Value Reference Range Interpretation Comme nts APPEARANCE (test code = 5767-9) CLEAR CLEAR BACTERIA (test code = 61003-6) TRACE NONE SEEN A BILIRUBIN (test code = 5770-3) NEGATIVE NEGATIVE CASTS, HYALINE (test code = 32287-2) NONE SEEN NONE-TRACE COLOR (test code = 5778-6) YELLOW YELLOW-STRAW CRYSTALS (test code = 5782-8) NONE SEEN NONE SEEN EPITHELIAL CELLS (test code = 07502-8) 0-5 /HPF See_Comment [Automated [employer] The system which generated this result transmitted reference range: 0-10 /HPF. The reference range was not used to interpret this result as normal/abnormal. GLUCOSE (test code = 5792-7) NEGATIVE NEGATIVE KETONES (test code = 5797-6) NEGATIVE NEGATIVE LEUKOCYTE ESTERASE (test code = 5799-2) 1+ NEGATIVE A NITRITE (test code = 5802-4) NEGATIVE NEGATIVE OCCULT BLOOD (test code = 57643-3) NEGATIVE NEGATIVE OTHER (test code = 25482-9) (NOTE) pH (test code = 5803-2) 6.0 5.0-9.0 PROTEIN (test code = 00062-8) NEGATIVE NEGATIVE RED BLOOD CELLS (test code = 05156-3) 0-2 /HPF See_Comment [Automated messa ge] The system which generated this result transmitted reference range: 0-2 /HPF. The reference range was not used to interpret this result as normal/abnormal. SPECIFIC GRAVITY (test code = 5811-5) 1.030 1.005-1.035 UROBILINOGEN (test code = 38151-2) 0.2 MG/DL See_Comment [Automated messa ge] The system which generated this result transmitted reference range: <=2.0 MG/DL. The reference range was not used to interpret this result as normal/abnormal. WHITE BLOOD CELLS (test code = 86056-8) 6-10 /HPF See_Comment A [Automated messa ge] The system which generated this result transmitted reference range: 0-5 /HPF. The reference range was not used to interpret this result as normal/abnormal. LIPID PANEL WITH REFLEX DIRECT [id number] 00:00:00* Test Item Value Reference Range Interpretation Comme nts CALC LDL CHOL (test code = 61309-3) 128 MG/DL See_Comment H [Automated messa ge] The system which generated this result transmitted reference range: <100 MG/DL. The reference range was not used to interpret this result as normal/abnormal. CHOLESTEROL (test code = 2093-3) 214 MG/DL See_Comment H [Automated messa ge] The system which generated this result transmitted reference range: <200 MG/DL. The reference range was not used to interpret this result as normal/abnormal. HDL CHOLESTEROL (test code = 2085-9) 55 MG/DL See_Comment [Automated messa ge] The system which generated this result transmitted reference range: >39 MG/DL. The reference range was not used to interpret this result as normal/abnormal. RISK RATIO LDL/HDL (test code = 77710-1) 2.33 RATIO See_Comment [Automated message] The system which generated this result transmitted reference range: <3.22 RATIO. The reference range was not used to interpret this result as normal/abnormal. TRIGLYCERIDES (test code = 2571-8) 190 MG/DL See_Comment H [Automated messa ge] The system which generated this result transmitted reference range: <150 MG/DL. The reference range was not used to interpret this result as normal/abnormal. VITAMIN B 12 AND FOLIC [id number] 00:00:00* Test Item Value Reference Range Interpretation Comme nts FOLIC ACID (test code = 2284-8) >20.0 UG/L SEE BELOW UG/L VITAMIN B-12 (test code = 2132-9) 1091 PG/ML See_Comment H [Automated messa ge] The system which generated this result transmitted reference range: 200-950 PG/ML. The reference range was not used to interpret this result as normal/abnormal. COMPREHENSIVE METABOLIC [id number] 00:00:00* Test Item Value Reference Range Interpretation Comme nts ALBUMIN (test code = 1751-7) 4.4 G/DL See_Comment [Automated messa ge] The system which generated this result transmitted reference range: 3.5-5.2 G/DL. The reference range was not used to interpret this result as normal/abnormal. ALKALINE PHOSPHATASE (test code = 6768-6) 101 U/L See_Comment [Automated message] The system which generated this result transmitted reference range: 40-142 U/L. The reference range was not used to interpret this result as normal/abnormal. BILIRUBIN, TOTAL (test code = 1975-2) 0.6 MG/DL See_Comment [Automated message] The system which generated this result transmitted reference range: <=1.2 MG/DL. The reference range was not used to interpret this result as normal/abnormal. BUN (test code = 3094-0) 19 MG/DL See_Comment [Automated messa ge] The system which generated this result transmitted reference range: 8-23 MG/DL. The reference range was not used to interpret this result as normal/abnormal. CALCIUM (test code = 08251-5) 10.1 MG/DL See_Comment [Automated messa ge] The system which generated this result transmitted reference range: 8.5-10.5 MG/DL. The reference range was not used to interpret this result as normal/abnormal. CALC A/G RATIO (test code = 1759-0) 1.2 RATIO See_Comment [Automated [employer] ge] The system which generated this result transmitted reference range: 1.0-2.6 RATIO. The reference range was not used to interpret this result as normal/abnormal. CALC BUN/CREAT (test code = 3097-3) 17 RATIO See_Comment [Automated messa ge] The system which generated this result transmitted reference range: 6-28 RATIO. The reference range was not used to interpret this result as normal/abnormal. CALC GLOBULIN (test code = 31232-0) 3.6 G/DL See_Comment [Automated messa ge] The system which generated this result transmitted reference range: 1.9-3.7 G/DL. The reference range was not used to interpret this result as normal/abnormal. CARBON DIOXIDE (test code = 1963-8) 26 MEQ/L See_Comment [Automated messa ge] The system which generated this result transmitted reference range: 19-31 MEQ/L. The reference range was not used to interpret this result as normal/abnormal. CHLORIDE (test code = 2075-0) 100 MEQ/L See_Comment [Automated messa ge] The system which generated this result transmitted reference range: 95-107 MEQ/L. The reference range was not used to interpret this result as normal/abnormal. CREATININE (test code = 2160-0) 1.14 MG/DL See_Comment [Automated messa ge] The system which generated this result transmitted reference range: 0.60-1.30 MG/DL. The reference range was not used to interpret this result as normal/abnormal. eGFR (2020 CKD-EPI) (test code = 07929-2) 48 ML/MIN/1.73 See_Comment L [Automated messa ge] The system which generated this result transmitted reference range: >60 ML/MIN/1.73. The reference range was not used to interpret this result as normal/abnormal. GLUCOSE (test code = 1558-6) 86 MG/DL See_Comment [Automated messa ge] The system which generated this result transmitted reference range: 70-99 MG/DL. The reference range was not used to interpret this result as normal/abnormal. POTASSIUM (test code = 2823-3) 4.4 MEQ/L See_Comment [Automated messa ge] The system which generated this result transmitted reference range: 3.5-5.4 MEQ/L. The reference range was not used to interpret this result as normal/abnormal. PROTEIN, TOTAL (test code = 2885-2) 8.0 G/DL See_Comment [Automated messa ge] The system which generated this result transmitted reference range: 6.1-8.3 G/DL. The reference range was not used to interpret this result as normal/abnormal. AST (test code = 1920-8) 18 U/L See_Comment [Automated [employer] ge] The system which generated this result transmitted reference range: 9-40 U/L. The reference range was not used to interpret this result as normal/abnormal. ALT (test code = 1742-6) 9 U/L See_Comment [Automated [employer] ge] The system which generated this result transmitted reference range: 5-40 U/L. The reference range was not used to interpret this result as normal/abnormal. SODIUM (test code = 2951-2) 140 MEQ/L See_Comment [Automated [employer] The system which generated this result transmitted reference range: 133-146 MEQ/L. The reference range was not used to interpret this result as normal/abnormal. Vitamin D 25 [id number] 12:37:17* Test Item Value Reference Range Interpretation Comme nts Vitamin D, 25-Hydroxy (test code = 11493-0) 60 SEE BELOW NG/ML ? ? EFF ECTIVE 09/30/2022, PLEASE NOTE NEW METHODOLOGY IS ?ELECTROCHEMILUMINESCENCE BINDING ASSAY. NOTE: 25-HYDROXYVITAMIN D ASSAY INCLUDES 25-HYDROXYVITAMIN D2 ? ? ?AND D3. ? INTERPRETIVE RANGES PEDIATRIC (<17 YEARS) . . . . . . . . . . . NG/ML ? 20-100ADULT: ?INSUFFICIENT ?. . . . . . . . . . . . . . NG/ML ? <20 ?SUBOPTIMAL ?. . . . . . . . . . . . . . . NG/ML ? 20-29 ?OPTIMAL . . . . . . . . . . . . . . . . . NG/ML ? 30-100 Testing Performed At:[facility]: ?[facility], [address] [place] [address] [id number] Director: Ginette Camp M.D., [facility] #: [id number] [facility]-reactive [id number] 11:45:25* Test Item Value Reference Range Interpretation Comme nts C-REACTIVE PROTEIN (test code = 1988-5) 0.5 See_Comment H Testing Performe d At:[facility]: ?[facility], [address] [place] [address] 83861Irjvselans Director: Ginette Camp M.D., [facility] #: [id number] [Automated message] The system which generated this result transmitted reference range: <0.5 MG/DL. The reference range was not used to interpret this result as normal/abnormal. Lab Interpretation (test code = 53194-7) Abnormal [facility] [id number] 11:35:46* Test Item Value Reference Range Interpretation Comme nts GLUCOSE (test code = 2345-7) 91 See_Comment [Automated [employer] ge] The system which generated this result transmitted reference range: 70 - 99 MG/DL. The reference range was not used to interpret this result as normal/abnormal. BUN (test code = 3094-0) 26 See_Comment H [Automated message] The system which generated this result transmitted reference range: 8 - 23 MG/DL. The reference range was not used to interpret this result as normal/abnormal. CREATININE (test code = 2160-0) 1.14 See_Comment [Automated [employer] ge] The system which generated this result transmitted reference range: 0.60 - 1.30 MG/DL. The reference range was not used to interpret this result as normal/abnormal. eGFR If NonAfricn Am (test code = 98315-1) 48 See_Comment L The NKF- N Taskforce recommends use of Cystatin C to confirm eGFR inadults at risk for CKD. ?[facility] offers eGFR with Cystatin C-Creatinineusing the 2020 CKD-EPI eGFR_creat-cystat equation (order code 3057) toincrease the accuracy of estimated GFR. For more information, contactur chartered accountant or see announcement [email or web address] [Automated message] The system which generated this result transmitted reference range: >60 ML/MIN/1.73. The reference range was not used to interpret this result as normal/abnormal. BUN/CREATININE RATIO (test code = 3097-3) 23 See_Comment [Automated message] The system which generated this result transmitted reference range: 6 - 28 RATIO. The reference range was not used to interpret this result as normal/abnormal. SODIUM (test code = 2951-2) 141 See_Comment [Automated messa ge] The system which generated this result transmitted reference range: 133 - 146 MEQ/L. The reference range was not used to interpret this result as normal/abnormal. POTASSIUM (test code = 2823-3) 4.4 See_Comment [Automated messa ge] The system which generated this result transmitted reference range: 3.5 - 5.4 MEQ/L. The reference range was not used to interpret this result as normal/abnormal. CHLORIDE (test code = 2075-0) 103 See_Comment [Automated messa ge] The system which generated this result transmitted reference range: 95 - 107 MEQ/L. The reference range was not used to interpret this result as normal/abnormal. CARBON DIOXIDE (test code = 2028-9) 27 See_Comment [Automated messa ge] The system which generated this result transmitted reference range: 19 - 31 MEQ/L. The reference range was not used to interpret this result as normal/abnormal. CALCIUM (test code = 20156-6) 9.6 See_Comment [Automated messa ge] The system which generated this result transmitted reference range: 8.5 - 10.5 MG/DL. The reference range was not used to interpret this result as normal/abnormal. PROTEIN, TOTAL (test code = 2885-2) 7.5 See_Comment [Automated messa ge] The system which generated this result transmitted reference range: 6.1 - 8.3 G/DL. The reference range was not used to interpret this result as normal/abnormal. ALBUMIN (test code = 93882-4) 4.6 See_Comment [Automated messa ge] The system which generated this result transmitted reference range: 3.5 - 5.2 G/DL. The reference range was not used to interpret this result as normal/abnormal. GLOBULIN (test code = 62373-9) 2.9 See_Comment [Automated messa ge] The system which generated this result transmitted reference range: 1.9 - 3.7 G/DL. The reference range was not used to interpret this result as normal/abnormal. A/G RATIO (test code = 1759-0) 1.6 See_Comment [Automated messa ge] The system which generated this result transmitted reference range: 1.0 - 2.6 RATIO. The reference range was not used to interpret this result as normal/abnormal. BILIRUBIN, TOTAL (test code = 1975-2) 0.4 See_Comment [Automated messa ge] The system which generated this result transmitted reference range: <=1.2 MG/DL. The reference range was not used to interpret this result as normal/abnormal. ALKALINE PHOSPHATASE (test code = 6768-6) 100 U/L 40-142 AST (test code = 1920-8) 18 U/L 9-40 ALT (test code = 1742-6) 12 U/L 5-40 Testing Performed At:[facility]: ?[facility] [address]Suvyodrphx Director: Ginette Camp M.D., CLIA #: [id number] Lab Interpretation (test code = 61043-3) [facility], [id number] 10:19:30* Test Item Value Reference Range Interpretation Comme nts SED RATE BY MODIFIED KENZIE (test code = 4537-7) 72 See_Comment H Testing Performe d At:[facility]: ?[facility] [address]Iscwhcmvhi Director: Ginette Camp M.D., CLIA #: [id number] [Automated message] The system which generated this result transmitted reference range: 0 - 20 MM/HOUR. The reference range was not used to interpret this result as normal/abnormal. Lab Interpretation (test code = 80005-7) [facility]normal [facility] and gbciygagxtvw3678-93-79 08:00:45* Test Item Value Reference Range Interpretation Comme nts WHITE BLOOD CELL COUNT (test code = 6690-2) 6.8 See_Comment [Automated message] The system which generated this result transmitted reference range: 3.5 - 11.0 K/UL. The reference range was not used to interpret this result as normal/abnormal. RED BLOOD CELL COUNT (test code = 789-8) 3.83 See_Comment [Automated m essage] The system which generated this result transmitted reference range: 3.80 - 5.40 M/UL. The reference range was not used to interpret this result as normal/abnormal. HEMOGLOBIN (test code = 718-7) 12.3 See_Comment [Automated [employer] ge] The system which generated this result transmitted reference range: 11.5 - 15.5 G/DL. The reference range was not used to interpret this result as normal/abnormal. HEMATOCRIT (test code = 4544-3) 37.1 % 34.0-45.0 MCV (test code = 787-2) 96.9 fL 80.0-99.0 MCH (test code = 785-6) 32.1 PG 25.0-33.0 MCHC (test code = 786-4) 33.2 See_Comment [Automated message] The system which generated this result transmitted reference range: 31.0 - 36.0 G/DL. The reference range was not used to interpret this result as normal/abnormal. RDW (test code = 788-0) 12.4 % NEUTROPHILS (test code = 770-8) 70.3 % LYMPHOCYTES (test code = 736-9) 20.6 % MONOCYTES (test code = 5905-5) 6.4 % EOSINOPHILS (test code = 713-8) 1.8 % BASOPHILS (test code = 706-2) 0.6 % Immature Granulocytes (test code = 39345-4) 0.02 % See_Comment [Automated message] The system which generated this result transmitted reference range: 0.00 - 0.10 K/UL. The reference range was not used to interpret this result as normal/abnormal. NUCLEATED RBC (test code = 68831-8) 0.0 See_Comment [Automated [employer]] The system which generated this result transmitted reference range: 0.0 /100 WBC'S. The reference range was not used to interpret this result as normal/abnormal. PLATELET COUNT (test code = 777-3) 326 See_Comment [Automated [employer]] The system which generated this result transmitted reference range: 130 - 400 K/UL. The reference range was not used to interpret this result as normal/abnormal. ABSOLUTE NEUTROPHILS (test code = 751-8) 4.76 See_Comment [Automated m essage] The system which generated this result transmitted reference range: 1.50 - 7.50 K/UL. The reference range was not used to interpret this result as normal/abnormal. ABSOLUTE LYMPHOCYTES (test code = 732-8) 1.39 See_Comment [Automated m essage] The system which generated this result transmitted reference range: 1.00 - 4.00 K/UL. The reference range was not used to interpret this result as normal/abnormal. ABSOLUTE MONOCYTES (test code = 742-7) 0.43 See_Comment [Automated [employer]] The system which generated this result transmitted reference range: 0.20 - 1.00 K/UL. The reference range was not used to interpret this result as normal/abnormal. ABSOLUTE EOSINOPHILS (test code = 711-2) 0.12 See_Comment [Automated m essage] The system which generated this result transmitted reference range: 0.00 - 0.50 K/UL. The reference range was not used to interpret this result as normal/abnormal. ABSOLUTE BASOPHILS (test code = 704-7) 0.04 See_Comment [Automated [employer]] The system which generated this result transmitted reference range: 0.00 - 0.20 K/UL. The reference range was not used to interpret this result as normal/abnormal. ABSOLUTE NUCLEATED RBC (test code = 67553-8) 0.00 K/UL Testing Pe rformed At:[facility]: ?[facility], [address] [place] [id number] Director: Ginette Camp M.D., [facility] #: [id number] MS HealthVitamin D 25 saygvdz0374-97-89 16:19:39* Test Item Value Reference Range Interpretation Comme nts Vitamin D, 25-Hydroxy (test code = 86295-1) 113 SEE BELOW NG/ML H ? ? EFF ECTIVE 09/30/2022, PLEASE NOTE NEW METHODOLOGY IS ?ELECTROCHEMILUMINESC ENCE BINDING ASSAY. NOTE: 25-HYDROXYVITAMIN D ASSAY INCLUDES 25-HYDROXYVITAMIN D2 ? ? ?AND D3. ? INTERPRETIVE RANGES PEDIATRIC (<17 YEARS) . . . . . . . . . . . NG/ML ? 20-100ADULT: ?INSUFFICIENT ?. . . . . . . . . . . . . . NG/ML ? <20 ?SUBOPTIMAL ?. . . . . . . . . . . . . . . NG/ML ? 20-29 ?OPTIMAL . . . . . . . . . . . . . . . . . NG/ML ? 30-100 Testing Performed At:[facility]: ?[facility] [place] [id number] Director: Thierry Hernandez M.D., CLIA #: [id number] Lab Interpretation (test code = 78534-7) Abnormal [facility], gxwsmdksd7175-38-95 10:20:53* Test Item Value Reference Range Interpretation Comme nts SED RATE BY MODIFIED WESTERGREN (test code = 4537-7) 65 See_Comment H [Automated messa ge] The system which generated this result transmitted reference range: 0 - 20 MM/HOUR. The reference range was not used to interpret this result as normal/abnormal. Lab Interpretation (test code = 83271-4) Abnormal [facility] Health[facility]edimentation rate, hfmimctpa6625-95-19 10:20:53* Test Item Value Reference Range Interpretation Comme nts SED RATE BY MODIFIED WESTERGREN (test code = 4537-7) 65 See_Comment H Testing Performe d At:[facility]: ?[facility] [address] [address]Jqhyuhdqdc Director: Thierry Hernandez M.D., CLIA #: [id number] [Automated message] The system which generated this result transmitted reference range: 0 - 20 MM/HOUR. The reference range was not used to interpret this result as normal/abnormal. Lab Interpretation (test code = 39247-2) Abnormal [facility]reactive neagpvj8761-26-87 10:16:09* Test Item Value Reference Range Interpretation Comme nts C-REACTIVE PROTEIN (test code = 1988-01) 0.6 See_Comment H [Automated messa ge] The system which generated this result transmitted reference range: <0.5 MG/DL. The reference range was not used to interpret this result as normal/abnormal. Lab Interpretation (test code = 91872-6) Abnormal [facility]reactive ibsyync2381-45-50 10:16:09* Test Item Value Reference Range Interpretation Comme nts C-REACTIVE PROTEIN (test code = 1988-01) 0.6 See_Comment H Testing Performe d At:[facility]: ?[facility], [address] [place] [address], [place], [place] [address]Laziksesyx Director: Thierry Hernandez M.D., [facility] #: [id number] [Automated message] The system which generated this result transmitted reference range: <0.5 MG/DL. The reference range was not used to interpret this result as normal/abnormal. Lab Interpretation (test code = 98906-0) [facility]normal [facility] [id number] 10:03:05* Test Item Value Reference Range Interpretation Comme nts GLUCOSE (test code = 2345-7) 86 See_Comment [Automated messa ge] The system which generated this result transmitted reference range: 70 - 99 MG/DL. The reference range was not used to interpret this result as normal/abnormal. BUN (test code = 3094-0) 27 See_Comment H [Automated message] The system which generated this result transmitted reference range: 8 - 23 MG/DL. The reference range was not used to interpret this result as normal/abnormal. CREATININE (test code = 2160-0) 1.17 See_Comment [Automated [employer] ge] The system which generated this result transmitted reference range: 0.60 - 1.30 MG/DL. The reference range was not used to interpret this result as normal/abnormal. eGFR If NonAfricn Am (test code = 06454-4) 47 See_Comment L The NKF- N Taskforce recommends use of Cystatin C to confirm eGFR inadults at risk for CKD. ?[facility] offers eGFR with Cystatin C-Creatinineusing the 2020 CKD-EPI eGFR_creat-cystat equation (order code 3057) toincrease the accuracy of estimated GFR. For more information, contactyour chartered accountant or see announcement [email or web address] [Automated message] The system which generated this result transmitted reference range: >60 ML/MIN/1.73. The reference range was not used to interpret this result as normal/abnormal. BUN/CREATININE RATIO (test code = 3097-3) 23 See_Comment [Automated message] The system which generated this result transmitted reference range: 6 - 28 RATIO. The reference range was not used to interpret this result as normal/abnormal. SODIUM (test code = 2951-2) 143 See_Comment [Automated messa ge] The system which generated this result transmitted reference range: 133 - 146 MEQ/L. The reference range was not used to interpret this result as normal/abnormal. POTASSIUM (test code = 2823-3) 4.1 See_Comment [Automated messa ge] The system which generated this result transmitted reference range: 3.5 - 5.4 MEQ/L. The reference range was not used to interpret this result as normal/abnormal. CHLORIDE (test code = 2075-0) 104 See_Comment [Automated messa ge] The system which generated this result transmitted reference range: 95 - 107 MEQ/L. The reference range was not used to interpret this result as normal/abnormal. CARBON DIOXIDE (test code = 8-9) 26 See_Comment [Automated messa ge] The system which generated this result transmitted reference range: 19 - 31 MEQ/L. The reference range was not used to interpret this result as normal/abnormal. CALCIUM (test code = 78201-0) 10.4 See_Comment [Automated messa ge] The system which generated this result transmitted reference range: 8.5 - 10.5 MG/DL. The reference range was not used to interpret this result as normal/abnormal. PROTEIN, TOTAL (test code = 2885-2) 7.3 See_Comment [Automated messa ge] The system which generated this result transmitted reference range: 6.1 - 8.3 G/DL. The reference range was not used to interpret this result as normal/abnormal. ALBUMIN (test code = 31326-6) 4.5 See_Comment [Automated messa ge] The system which generated this result transmitted reference range: 3.5 - 5.2 G/DL. The reference range was not used to interpret this result as normal/abnormal. GLOBULIN (test code = 76431-0) 2.8 See_Comment [Automated messa ge] The system which generated this result transmitted reference range: 1.9 - 3.7 G/DL. The reference range was not used to interpret this result as normal/abnormal. A/G RATIO (test code = 1759-0) 1.6 See_Comment [Automated messa ge] The system which generated this result transmitted reference range: 1.0 - 2.6 RATIO. The reference range was not used to interpret this result as normal/abnormal. BILIRUBIN, TOTAL (test code = 1975-2) 0.8 See_Comment [Automated [employer] The system which generated this result transmitted reference range: <=1.2 MG/DL. The reference range was not used to interpret this result as normal/abnormal. ALKALINE PHOSPHATASE (test code = 6768-6) 93 U/L 40-142 AST (test code = 1920-8) 14 U/L 9-40 ALT (test code = 1742-6) 7 U/L 5-40 Lab Interpretation (test code = 55101-5) Abnormal [facility] metabolic [id number] 10:03:05* Test Item Value Reference Range Interpretation Comme nts GLUCOSE (test code = 2345-7) 86 See_Comment [Automated [employer] The system which generated this result transmitted reference range: 70 - 99 MG/DL. The reference range was not used to interpret this result as normal/abnormal. BUN (test code = 3094-0) 27 See_Comment H [Automated message] The system which generated this result transmitted reference range: 8 - 23 MG/DL. The reference range was not used to interpret this result as normal/abnormal. CREATININE (test code = 2160-0) 1.17 See_Comment [Automated Axial] The system which generated this result transmitted reference range: 0.60 - 1.30 MG/DL. The reference range was not used to interpret this result as normal/abnormal. eGFR If NonAfricn Am (test code = 04428-0) 47 See_Comment L The NKF- N Taskforce recommends use of Cystatin C to confirm eGFR inadults at risk for CKD. ?[facility] offers eGFR with Cystatin C-Creatinineusing the 2020 CKD-EPI eGFR_creat-cystat equation (order code 3057) toincrease the accuracy of estimated GFR. For more information, contactyour chartered accountant or see announcement [email or web address] [Automated message] The system which generated this result transmitted reference range: >60 ML/MIN/1.73. The reference range was not used to interpret this result as normal/abnormal. BUN/CREATININE RATIO (test code = 3097-3) 23 See_Comment [Automated message] The system which generated this result transmitted reference range: 6 - 28 RATIO. The reference range was not used to interpret this result as normal/abnormal. SODIUM (test code = 2951-2) 143 See_Comment [Automated messa ge] The system which generated this result transmitted reference range: 133 - 146 MEQ/L. The reference range was not used to interpret this result as normal/abnormal. POTASSIUM (test code = 2823-3) 4.1 See_Comment [Automated messa ge] The system which generated this result transmitted reference range: 3.5 - 5.4 MEQ/L. The reference range was not used to interpret this result as normal/abnormal. CHLORIDE (test code = 2075-0) 104 See_Comment [Automated messa ge] The system which generated this result transmitted reference range: 95 - 107 MEQ/L. The reference range was not used to interpret this result as normal/abnormal. CARBON DIOXIDE (test code = 2028-9) 26 See_Comment [Automated messa ge] The system which generated this result transmitted reference range: 19 - 31 MEQ/L. The reference range was not used to interpret this result as normal/abnormal. CALCIUM (test code = 25723-4) 10.4 See_Comment [Automated messa ge] The system which generated this result transmitted reference range: 8.5 - 10.5 MG/DL. The reference range was not used to interpret this result as normal/abnormal. PROTEIN, TOTAL (test code = 2885-2) 7.3 See_Comment [Automated messa ge] The system which generated this result transmitted reference range: 6.1 - 8.3 G/DL. The reference range was not used to interpret this result as normal/abnormal. ALBUMIN (test code = 65105-8) 4.5 See_Comment [Automated messa ge] The system which generated this result transmitted reference range: 3.5 - 5.2 G/DL. The reference range was not used to interpret this result as normal/abnormal. GLOBULIN (test code = 15676-7) 2.8 See_Comment [Automated messa ge] The system which generated this result transmitted reference range: 1.9 - 3.7 G/DL. The reference range was not used to interpret this result as normal/abnormal. A/G RATIO (test code = 1759-0) 1.6 See_Comment [Automated messa ge] The system which generated this result transmitted reference range: 1.0 - 2.6 RATIO. The reference range was not used to interpret this result as normal/abnormal. BILIRUBIN, TOTAL (test code = 1975-2) 0.8 See_Comment [Automated [employer] ge] The system which generated this result transmitted reference range: <=1.2 MG/DL. The reference range was not used to interpret this result as normal/abnormal. ALKALINE PHOSPHATASE (test code = 6768-6) 93 U/L 40-142 AST (test code = 1920-8) 14 U/L 9-40 ALT (test code = 1742-6) 7 U/L 5-40 Testing Performed At:CPL: ?[facility], [address] [place] [address] [id number] Director: Thierry Hernandez M.D., [facility] #: [id number] Lab Interpretation (test code = 27240-2) Abnormal [facility] and ikanvsqufzqr3595-56-56 08:59:33* Test Item Value Reference Range Interpretation Comme nts WHITE BLOOD CELL COUNT (test code = 6690-2) 7.1 See_Comment [Automated message] The system which generated this result transmitted reference range: 3.5 - 11.0 K/UL. The reference range was not used to interpret this result as normal/abnormal. RED BLOOD CELL COUNT (test code = 789-8) 3.69 See_Comment L [Automated m essage] The system which generated this result transmitted reference range: 3.80 - 5.40 M/UL. The reference range was not used to interpret this result as normal/abnormal. HEMOGLOBIN (test code = 718-7) 12.0 See_Comment [Automated [employer] ge] The system which generated this result transmitted reference range: 11.5 - 15.5 G/DL. The reference range was not used to interpret this result as normal/abnormal. HEMATOCRIT (test code = 4544-3) 35.9 % 34.0-45.0 MCV (test code = 787-2) 97.3 fL 80.0-99.0 MCH (test code = 785-6) 32.5 PG 25.0-33.0 MCHC (test code = 786-4) 33.4 See_Comment [Automated message] The system which generated this result transmitted reference range: 31.0 - 36.0 G/DL. The reference range was not used to interpret this result as normal/abnormal. RDW (test code = 788-0) 12.7 % NEUTROPHILS (test code = 770-8) 68.1 % LYMPHOCYTES (test code = 736-9) 21.0 % MONOCYTES (test code = 5905-5) 8.1 % EOSINOPHILS (test code = 713-8) 1.7 % BASOPHILS (test code = 706-2) 0.8 % Immature Granulocytes (test code = 66381-3) 0.02 % See_Comment [Automated message] The system which generated this result transmitted reference range: 0.00 - 0.10 K/UL. The reference range was not used to interpret this result as normal/abnormal. NUCLEATED RBC (test code = 21849-8) 0.0 See_Comment [Automated [employer] ge] The system which generated this result transmitted reference range: 0.0 /100 WBC'S. The reference range was not used to interpret this result as normal/abnormal. PLATELET COUNT (test code = 777-3) 280 See_Comment [Automated [employer] ge] The system which generated this result transmitted reference range: 130 - 400 K/UL. The reference range was not used to interpret this result as normal/abnormal. ABSOLUTE NEUTROPHILS (test code = 751-8) 4.85 See_Comment [Automated m essage] The system which generated this result transmitted reference range: 1.50 - 7.50 K/UL. The reference range was not used to interpret this result as normal/abnormal. ABSOLUTE LYMPHOCYTES (test code = 732-8) 1.50 See_Comment [Automated m essage] The system which generated this result transmitted reference range: 1.00 - 4.00 K/UL. The reference range was not used to interpret this result as normal/abnormal. ABSOLUTE MONOCYTES (test code = 742-7) 0.58 See_Comment [Automated [employer] ge] The system which generated this result transmitted reference range: 0.20 - 1.00 K/UL. The reference range was not used to interpret this result as normal/abnormal. ABSOLUTE EOSINOPHILS (test code = 711-2) 0.12 See_Comment [Automated m essage] The system which generated this result transmitted reference range: 0.00 - 0.50 K/UL. The reference range was not used to interpret this result as normal/abnormal. ABSOLUTE BASOPHILS (test code = 704-7) 0.06 See_Comment [Automated messa ge] The system which generated this result transmitted reference range: 0.00 - 0.20 K/UL. The reference range was not used to interpret this result as normal/abnormal. ABSOLUTE NUCLEATED RBC (test code = 12010-3) 0.00 K/UL Lab Interpretation (test code = 45867-4) Abnormal [facility] and [id number] 08:59:33* Test Item Value Reference Range Interpretation Comme nts WHITE BLOOD CELL COUNT (test code = 6690-2) 7.1 See_Comment [Automated message] The system which generated this result transmitted reference range: 3.5 - 11.0 K/UL. The reference range was not used to interpret this result as normal/abnormal. RED BLOOD CELL COUNT (test code = 789-8) 3.69 See_Comment L [Automated m essage] The system which generated this result transmitted reference range: 3.80 - 5.40 M/UL. The reference range was not used to interpret this result as normal/abnormal. HEMOGLOBIN (test code = 718-7) 12.0 See_Comment [Automated messa ge] The system which generated this result transmitted reference range: 11.5 - 15.5 G/DL. The reference range was not used to interpret this result as normal/abnormal. HEMATOCRIT (test code = 4544-3) 35.9 % 34.0-45.0 MCV (test code = 787-2) 97.3 fL 80.0-99.0 MCH (test code = 785-6) 32.5 PG 25.0-33.0 MCHC (test code = 786-4) 33.4 See_Comment [Automated message] The system which generated this result transmitted reference range: 31.0 - 36.0 G/DL. The reference range was not used to interpret this result as normal/abnormal. RDW (test code = 788-0) 12.7 % NEUTROPHILS (test code = 770-8) 68.1 % LYMPHOCYTES (test code = 736-9) 21.0 % MONOCYTES (test code = 5905-5) 8.1 % EOSINOPHILS (test code = 713-8) 1.7 % BASOPHILS (test code = 706-2) 0.8 % Immature Granulocytes (test code = 00396-1) 0.02 % See_Comment [Automated message] The system which generated this result transmitted reference range: 0.00 - 0.10 K/UL. The reference range was not used to interpret this result as normal/abnormal. NUCLEATED RBC (test code = 54076-3) 0.0 See_Comment [Automated messa ge] The system which generated this result transmitted reference range: 0.0 /100 WBC'S. The reference range was not used to interpret this result as normal/abnormal. PLATELET COUNT (test code = 777-3) 280 See_Comment [Automated messa ge] The system which generated this result transmitted reference range: 130 - 400 K/UL. The reference range was not used to interpret this result as normal/abnormal. ABSOLUTE NEUTROPHILS (test code = 751-8) 4.85 See_Comment [Automated m essage] The system which generated this result transmitted reference range: 1.50 - 7.50 K/UL. The reference range was not used to interpret this result as normal/abnormal. ABSOLUTE LYMPHOCYTES (test code = 732-8) 1.50 See_Comment [Automated m essage] The system which generated this result transmitted reference range: 1.00 - 4.00 K/UL. The reference range was not used to interpret this result as normal/abnormal. ABSOLUTE MONOCYTES (test code = 742-7) 0.58 See_Comment [Automated messa ge] The system which generated this result transmitted reference range: 0.20 - 1.00 K/UL. The reference range was not used to interpret this result as normal/abnormal. ABSOLUTE EOSINOPHILS (test code = 711-2) 0.12 See_Comment [Automated m essage] The system which generated this result transmitted reference range: 0.00 - 0.50 K/UL. The reference range was not used to interpret this result as normal/abnormal. ABSOLUTE BASOPHILS (test code = 704-7) 0.06 See_Comment [Automated messa ge] The system which generated this result transmitted reference range: 0.00 - 0.20 K/UL. The reference range was not used to interpret this result as normal/abnormal. ABSOLUTE NUCLEATED RBC (test code = 47992-4) 0.00 K/UL Testing Pe rformed At:CPL: ?[facility], [address] [place] [address] [id number] Director: Thierry Hernandez M.D., CLIA #: [id number] Lab Interpretation (test code = 76224-2) Abnormal [facility], [id number] 12:25:22* Test Item Value Reference Range Interpretation Comme nts SED RATE BY MODIFIED KENZIE (test code = 4537-7) See_Comment H Testing Performe d At:CPL: ?[facility], [address] [place] [address] [id number] Director: Thierry Hernandez M.D., CLIA #: [id number] [Automated message] The system which generated this result transmitted reference range: 0 - 20 MM/HOUR. The reference range was not used to interpret this result as normal/abnormal. Lab Interpretation (test code = 14594-1) Abnormal [facility] and haclakyggzud9252-01-82 11:51:35* Test Item Value Reference Range Interpretation Comme nts WBC (test code = 5821-4) See_Comment [Automated messa ge] The system which generated this result transmitted reference range: 3.5 - 11.0 K/UL. The reference range was not used to interpret this result as normal/abnormal. RBC (test code = 00598-0) See_Comment [Automated messa ge] The system which generated this result transmitted reference range: 3.80 - 5.40 M/UL. The reference range was not used to interpret this result as normal/abnormal. HEMOGLOBIN (test code = 718-7) See_Comment [Automated messa ge] The system which generated this result transmitted reference range: 11.5 - 15.5 G/DL. The reference range was not used to interpret this result as normal/abnormal. HEMATOCRIT (test code = 4544-3) 35.7 % 34.0-45.0 MCV (test code = 787-2) 93.0 fL 80.0-99.0 MCH (test code = 785-6) 32.6 PG 25.0-33.0 MCHC (test code = 786-4) See_Comment [Automated messa ge] The system which generated this result transmitted reference range: 31.0 - 36.0 G/DL. The reference range was not used to interpret this result as normal/abnormal. RDW (test code = 788-0) 12.8 % NEUTROPHILS (test code = 770-8) 80.4 % LYMPHOCYTES (test code = 736-9) 11.9 % MONOCYTES (test code = 5905-5) 5.9 % EOSINOPHILS (test code = 713-8) 1.2 % BASOPHILS (test code = 706-2) 0.4 % NUCLEATED RBC (test code = 82092-5) See_Comment [Automated [employer]] The system which generated this result transmitted reference range: 0.0 /100 WBC'S. The reference range was not used to interpret this result as normal/abnormal. PLATELET COUNT (test code = 777-3) See_Comment [Automated [employer] ge] The system which generated this result transmitted reference range: 130 - 400 K/UL. The reference range was not used to interpret this result as normal/abnormal. ABSOLUTE NEUTROPHILS (test code = 751-8) See_Comment [Automated m essage] The system which generated this result transmitted reference range: 1.50 - 7.50 K/UL. The reference range was not used to interpret this result as normal/abnormal. ABSOLUTE LYMPHOCYTES (test code = 732-8) See_Comment [Automated m essage] The system which generated this result transmitted reference range: 1.00 - 4.00 K/UL. The reference range was not used to interpret this result as normal/abnormal. ABSOLUTE MONOCYTES (test code = 742-7) See_Comment [Automated m essage] The system which generated this result transmitted reference range: 0.20 - 1.00 K/UL. The reference range was not used to interpret this result as normal/abnormal. ABSOLUTE EOSINOPHILS (test code = 711-2) See_Comment [Automated m essage] The system which generated this result transmitted reference range: 0.00 - 0.50 K/UL. The reference range was not used to interpret this result as normal/abnormal. ABSOLUTE BASOPHILS (test code = 704-7) See_Comment [Automated m essage] The system which generated this result transmitted reference range: 0.00 - 0.20 K/UL. The reference range was not used to interpret this result as normal/abnormal. ABSOLUTE NUCLEATED RBC (test code = 89635-2) K/UL Testing Pe rformed At:CPL: ?[facility], [address] [facility], [place], [place] [address]Uifinxvvju Director: Thierry Hernandez M.D., JB #: [id number] [facility], byjox8135-34-67 10:38:00* Test Item Value Reference Range Interpretation Comme nts PROTEIN, TOTAL, RANDOM UR (test code = 2888-6) NOT ESTAB MG/DL CREATININE, URINE (test code = 2162-6) NOT ESTAB MG/DL PROTEIN/CREATININE RATIO (test code = 002506239) SEE BELOW MG/G CREAT ? INTERPRETIVE INFORMATION NKF ADULT AND CHILD NORMAL RANGE . . . . . .MG/G CREAT ?<200AAFP (6-24 MONTHS) NORMAL RANGE . . .MG/G CREAT ?<500NEPHROTIC RANGE PROTEINURIA (APPROX) . . . .MG/G CREAT ?>2-3,000 NKF NORMAL RANGES PREFERRED FOR FIRST MORNING VOID, BUT NON-FIRSTMORNING SPECIMENS ARE ACCEPTABLE. ?FOR ASSESSMENT OF NON-FIRSTMORNING SPECIMENS, ADDITIONAL INTERPRETIVE INFORMATION PROVIDEDBELOW: ? AGE ?MALE ? FEMALE ?(MG/G CREAT) ? ? ?(MG/G CREAT) ? 7-9 ?<220 ? <300 ? 10-12 ?<220 ? <340 ? 13-15 ?<150 ? <390 ? 16-17 ?<190 ? <350 ? Refs: National Kid[employer] Foundation K/DOQI 2002. AKC Melita and ? C Grzegorz; Proteinuria in Children. Amer. Fam. Phys. ? 2010; 82(6): 645-651. ?MA Darrick et al. Pediatric Reference ? Intervals for Random Urine Calcium, Phosphorus and Total Protein. ? Pediatr Nephrol. 2010; 25:9694-2074. Testing Performed At:CPL: ?[facility], [address] [place] [address] [id number] Director: Thierry Hernandez M.D., CLIA #: [id number] [facility]-reactive dmkgexf0375-48-74 09:51:56* Test Item Value Reference Range Interpretation Comme [facility] C-REACTIVE PROTEIN (test code = 1988-5) See_Comment H Testing Performe d At:CPL: ?[facility], [address] [place] [address] 504[address]Tmxojedjef Director: Thierry Hernandez M.D., CLIA #: [id number] [Automated message] The system which generated this result transmitted reference range: <0.5 MG/DL. The reference range was not used to interpret this result as normal/abnormal. Lab Interpretation (test code = 67249-3) [facility]normal [facility] ynols2657-21-58 09:51:27* Test Item Value Reference Range Interpretation Comme [facility] GLUCOSE (test code = 2345-7) See_Comment H [Automated messa ge] The system which generated this result transmitted reference range: 70 - 99 MG/DL. The reference range was not used to interpret this result as normal/abnormal. BUN (test code = 3094-0) See_Comment [Automated message] The system which generated this result transmitted reference range: 8 - 23 MG/DL. The reference range was not used to interpret this result as normal/abnormal. CREATINE, SERUM (test code = 2148-5) See_Comment [Automated messa ge] The system which generated this result transmitted reference range: 0.60 - 1.30 MG/DL. The reference range was not used to interpret this result as normal/abnormal. eGFR If NonAfricn Am (test code = 67471-4) See_Comment L [Automated message] The system which generated this result transmitted reference range: >60 ML/MIN/1.73. The reference range was not used to interpret this result as normal/abnormal. BUN/CREATININE RATIO (test code = 3097-3) See_Comment [Automated message] The system which generated this result transmitted reference range: 6 - 28 RATIO. The reference range was not used to interpret this result as normal/abnormal. SODIUM (test code = 2951-2) See_Comment [Automated messa ge] The system which generated this result transmitted reference range: 133 - 146 MEQ/L. The reference range was not used to interpret this result as normal/abnormal. POTASSIUM (test code = 2823-3) See_Comment [Automated messa ge] The system which generated this result transmitted reference range: 3.5 - 5.4 MEQ/L. The reference range was not used to interpret this result as normal/abnormal. CHLORIDE (test code = 2075-0) See_Comment [Automated messa ge] The system which generated this result transmitted reference range: 95 - 107 MEQ/L. The reference range was not used to interpret this result as normal/abnormal. CARBON DIOXIDE (test code = 2027-9) See_Comment [Automated messa ge] The system which generated this result transmitted reference range: 19 - 31 MEQ/L. The reference range was not used to interpret this result as normal/abnormal. CALCIUM (test code = 90880-1) See_Comment [Automated messa ge] The system which generated this result transmitted reference range: 8.5 - 10.5 MG/DL. The reference range was not used to interpret this result as normal/abnormal. PROTEIN, TOTAL (test code = 2885-2) See_Comment [Automated messa ge] The system which generated this result transmitted reference range: 6.1 - 8.3 G/DL. The reference range was not used to interpret this result as normal/abnormal. ALBUMIN (test code = 82156-3) See_Comment [Automated messa ge] The system which generated this result transmitted reference range: 3.5 - 5.2 G/DL. The reference range was not used to interpret this result as normal/abnormal. GLOBULIN (test code = 83202-2) See_Comment [Automated messa ge] The system which generated this result transmitted reference range: 1.9 - 3.7 G/DL. The reference range was not used to interpret this result as normal/abnormal. A/G RATIO (test code = 1759-0) See_Comment [Automated messa ge] The system which generated this result transmitted reference range: 1.0 - 2.6 RATIO. The reference range was not used to interpret this result as normal/abnormal. BILIRUBIN, TOTAL (test code = 1975-2) See_Comment [Automated messa ge] The system which generated this result transmitted reference range: <=1.2 MG/DL. The reference range was not used to interpret this result as normal/abnormal. ALKALINE PHOSPHATASE (test code = 6768-6) 99 U/L 40-142 AST (test code = 1920-8) 15 U/L 9-40 ALT (test code = 1742-6) 12 U/L 5-40 Testing Performed At:CPL: ?[facility], [address] [place] [address] [id number] Director: Thierry Hernandez M.D., [facility] #: [id number] Lab Interpretation (test code = 15340-9) Abnormal [facility] HealthUrinalysis with reflex [id number] 07:44:08* Test Item Value Reference Range Interpretation Comme nts COLOR (test code = 12575-6) YELLOW YELLOW-STRAW APPEARANCE (test code = 50704-1) CLEAR CLEAR Specific [place] (test code = 2965-2) 1.005-1.035 LEUKOCYTE ESTERASE (test code = 5799-2) 1+ NEGATIVE A NITRITE (test code = 70209-5) NEGATIVE NEGATIVE pH (test code = 2756-5) 5.0-9.0 PROTEIN (test code = 93810-6) NEGATIVE NEGATIVE UA GLUCOSE (test code = 33247-4) NEGATIVE NEGATIVE KETONES (test code = 2514-8) NEGATIVE NEGATIVE UA UROBILINOGEN (test code = 996545519) See_Comment [Automated [employer] donaldo] The system which generated this result transmitted reference range: <=2.0 MG/DL. The reference range was not used to interpret this result as normal/abnormal. BILIRUBIN (test code = 5770-3) NEGATIVE NEGATIVE Occult Blood (test code = 5794-3) NEGATIVE NEGATIVE White Blood Cells (test code = 36770-6) 0-5 See_Comment [Automated [employer] The system which generated this result transmitted reference range: 0 - 5 /HPF. The reference range was not used to interpret this result as normal/abnormal. UA Blood (test code = 7559616) 0-2 See_Comment [Automated [employer] The system which generated this result transmitted reference range: 0 - 5 /HPF. The reference range was not used to interpret this result as normal/abnormal. Epithelial Cells (test code = 51494-9) 0-5 See_Comment [Automated [employer] ge] The system which generated this result transmitted reference range: 0 - 10 /HPF. The reference range was not used to interpret this result as normal/abnormal. BACTERIA (test code = 5769-5) NONE SEEN NONE SEEN HYALINE CAST (test code = 5796-8) TRACE Testing Performe d At:CPL: ?[facility], [address] [place] [address] [id number] Director: Thierry Hernandez M.D., [facility] #: [id number] Lab Interpretation (test code = 15532-4) Abnormal [facility][QL] C-REACTIVE [id number] 11:20:00* Test Item Value Reference Range Interpretation Comme nts C-REACTIVE PROTEIN (test cod e = C-REACTIVE PROTEIN) 4.3 mg/L <8.0 N [facility][QL] CMP [id number] 11:20:00* Test Item Value Reference Range Interpretation Comme nts GLUCOSE; Normal (test code = 1547-9) 91 mg/dl 65-99 N Fasting referenc e interval UREA NITROGEN (BUN) (test code = UREA NITROGEN (BUN)) 20 mg/dl 7-25 N CREATININE (test code = CREATININE) 1.09 mg/dl 0.60-0.93 For patients >49 years of age, the reference limitfor Creatinine is approximately 13% higher for peopleidentified as -Citizen Of [place]. eGFR NON-AFR. LEBANESE (test code = eGFR NON-AFR. LEBANESE) 49 {ML/MIN/1.7} > OR = 60 eGFR (test code = eGFR ) 56 {ML/MIN/1.7} > OR = 60 BUN/CREATININE RATIO (test code = BUN/CREATININE RATIO) 18 {CALC} 6-22 N SODIUM (test code = SODIUM) 138 mmol/L 135-146 N POTASSIUM (test code = POTASSIUM) 4.2 mmol/L 3.5-5.3 N CHLORIDE (test code = CHLORIDE) 102 mmol/L 98-110 N CARBON DIOXIDE (test code = CARBON DIOXIDE) 27 mmol/L 20-32 N CALCIUM (test code = CALCIUM) 9.7 mg/dl 8.6-10.4 N PROTEIN, TOTAL (test code = PROTEIN, TOTAL) 7.5 g/dl 6.1-8.1 N ALBUMIN (test code = ALBUMIN) 4.3 g/dl 3.6-5.1 N GLOBULIN (test code = GLOBULIN) 3.2 {G/DL CALC} 1.9-3.7 N ALBUMIN/GLOBULIN RATIO (test code = ALBUMIN/GLOBULIN RATIO) 1.3 {CALC} 1.0-2.5 N BILIRUBIN, TOTAL; Normal (test code = 76152-7) 0.7 mg/dl 0.2-1.2 N ALKALINE PHOSPHATASE (test code = ALKALINE PHOSPHATASE) 70 u/l 37-153 N AST; Normal (test code = 1916-6) 15 u/l 10-35 N ALT; Normal (test code = 1742-6) 12 u/l 6-29 N [facility][QL] SED RATE BY MODIFIED [id number] 11:20:00* Test Item Value Reference Range Interpretation Comme nts SED RATE BY MODIFIED IMELDAERG EDILMA (test code = SED RATE BY MODIFIED ELIEREN) 110 mm/h < OR = 30 [facility][QL] CBC (INCLUDES DIFF/PLT)2020-07-07 11:20:00* Test Item Value Reference Range Interpretation Comme nts WHITE BLOOD CELL COUNT (test code = WHITE BLOOD CELL COUNT) 7.1 {Thousand/u} 3.8-10.8 N RED BLOOD CELL COUNT (test code = RED BLOOD CELL COUNT) 3.86 {Million/uL} 3.80-5.10 N HEMOGLOBIN; Normal (test code = 83251-3) 12.4 g/dl 11.7-15.5 N HEMATOCRIT; Normal (test code = 4544-3) 36.3 % 35.0-45.0 N MCV; Normal (test code = 787-2) 94.0 fL 80.0-100.0 N MCHC; Normal (test code = 21728-3) 34.2 g/dl 32.0-36.0 N RDW; Normal (test code = 788-0) 13.1 % 11.0-15.0 N PLATELET COUNT; Normal (test code = 777-3) 315 {Thousand/u} 140-400 N MPV; Normal (test code = 61238-2) 9.8 fL 7.5-12.5 N ABSOLUTE NEUTROPHILS (test code = ABSOLUTE NEUTROPHILS) 4572 {cells/uL} 0338-4805 N ABSOLUTE LYMPHOCYTES (test code = ABSOLUTE LYMPHOCYTES) 1590 {cells/uL} 850-3900 N ABSOLUTE MONOCYTES (test code = ABSOLUTE MONOCYTES) 795 {cells/uL} 200-950 N ABSOLUTE EOSINOPHILS (test code = ABSOLUTE EOSINOPHILS) 114 {cells/uL} 15-500 N ABSOLUTE BASOPHILS (test code = ABSOLUTE BASOPHILS) 28 {cells/uL} 0-200 N NEUTROPHILS (test code = NEUTROPHILS) 64.4 % N LYMPHOCYTES (test code = LYMPHOCYTES) 22.4 % N MONOCYTES; Normal (test code = 61570-9) 11.2 % N EOSINOPHILS; Normal (test code = 53142-4) 1.6 % N BASOPHILS; Normal (test code = 69908-1) 0.4 % N [facility]] CMP [id number] 12:19:01* Test Item Value Reference Range Interpretation Comme nts Sodium Level (test code = 2951-2) 142 {mEq/l} 135-145 Potassium Level (test code = 2823-3) 3.5 {mEq/l} 3.5-5.1 Chloride Level (test code = 5-0) 106 {mEq/l} 95-109 Carbon Dioxide (test code = 2027-9) 29 {mEq/l} 24-32 AGAP (test code = 96602-2) 10.5 {mEq/l} 10.0-20.0 Glucose Lvl (test code = 2345-7) 94 mg/dl 70-99 Adult reference range values reflect the clinical guidelinesof the [place] Diabetes Association. Creatinine Lvl (test code = 2160-0) 1.00 mg/dl 0.50-1.40 Blood Urea Nitrogen (test code = 3094-0) 21 mg/dl 7-22 BUN/Creatinine Ratio (test code = 3097-3) 21 6-25 Total Protein (test code = 2885-2) 7.5 g/dl 6.4-8.4 Albumin Lvl (test code = 1751-7) 3.9 g/dl 3.5-5.0 Globulin (test code = 82819-5) 3.6 g/dl 2.7-4.2 A/G Ratio (test code = 1759-0) 1.1 0.7-1.6 Calcium Level Total (test code = 21179-0) 9.2 mg/dl 8.5-10.5 ALT (test code = 1743-4) 23 u/l 0-65 AST (test code = 46334-9) 22 u/l 0-37 Alk Phos (test code = 1783-0) 86 u/l 39-136 The pediatric re ference ranges for this test represent a CLSI-basedtransference of the CALIPER database of pediatric reference intervals to the[facility] Mica analyzer (Clinical Biochemistry 46 (2013): 1642-4654). [facility] [employer] has not internally validated these referenceranges and therefore they should be used only in the context of a thoroughclinical assessment. Bili Total (test code = 1975-2) 0.5 mg/dl 0.2-1.3 eGFR (test code = 80142-4) 54 {ML/MIN/1.7} The eGFR is calculat ed using the CKD-EPI formula. In most young, healthyindividuals the eGFR will be >90 mL/min/1.73m2. The eGFR declines with age. AneGFR of 60-89 may be normal in some populations, particularly the elderly, forwhom the CKD-EPI formula has not been extensively validated. Use of the eGFR isnot recommended in the following populations:Individuals with unstable creatinine concentrations, including patients and those with serious co-morbid conditions.Patients with extremes in muscle mass or diet.The data above are obtained from the National Kidney Disease Education Program(NKDEP) which additionally recommends that when the eGFR is used in patientswith extremes of body mass index for purposes of drug dosing, the eGFR shouldbe multiplied by the estimated BMI. [facility][QL] C-REACTIVE [id number] 12:19:01* Test Item Value Reference Range Interpretation Comme nts CRP (test code = CRP) <2.9 <=2.9 [facility][QL] CBC (INCLUDES DIFF/PLT)2019-08-09 12:19:01* Test Item Value Reference Range Interpretation Comme nts WBC (test code = 6690-2) 5.2 {K/CMM} 3.7-10.4 RBC; Below Low Threshold (te st code = 789-8) 3.87 {M/CMM} 4.20-5.40 Hgb (test code = 718-7) 12.6 g/dl 12.0-16.0 Hct (test code = 95162-1) 38.5 % 36.0-48.0 MCV; Above High Threshold (t est code = 787-2) 99.2 fL 80.0-98.0 MCH; Above High Threshold (t est code = 785-6) 32.6 pg 27.0-31.0 MCHC (test code = 786-4) 32.9 g/dl 32.0-36.0 RDW (test code = 788-0) 13.6 % 11.5-14.5 Platelet (test code = 37336-8) 250 {K/CMM} 133-450 Mean Platelet Volume (test c ode = 99225-2) 8.0 fL 7.4-10.4 [facility][QLH] [id number] 12:19:01* Test Item Value Reference Range Interpretation Comme nts Segmented Neutrophils (test code = 57270-9) 66.6 % 45.0-75.0 Monocytes (test code = 64642-1) 5.8 % 2.0-12.0 Lymphocytes (test code = 09254-9) 25.0 % 20.0-40.0 Eosinophils (test code = 29726-6) 1.7 % 0.0-4.0 Basophils (test code = 706-2) 0.9 % 0.0-1.0 Segs-Bands # (test code = 09850-2) 3.4 {K/CMM} 1.5-8.1 Lymphocytes # (test code = 04929-5) 1.3 {K/CMM} 1.0-5.5 Monocytes # (test code = 43950-4) 0.3 {K/CMM} 0.0-0.8 Eosinophils # (test code = 55581-4) 0.1 {K/CMM} 0.0-0.5 [facility][QL[facility]] SED RATE BY MODIFIED [id number] 12:19:01* Test Item Value Reference Range Interpretation Comme nts Sedimentation Rate; Above Hi gh Threshold (test code = 46271-5) 40 {mm/hr} 0-20 [facility][QLH] CBC (INCLUDES DIFF/PLT)2019-02-05 12:12:01* Test Item Value Reference Range Interpretation Comme nts WBC (test code = 6690-2) 6.9 {K/CMM} 3.7-10.4 RBC; Below Low Threshold (te st code = 789-8) 3.76 {M/CMM} 4.20-5.40 Hgb (test code = 718-7) 12.6 g/dl 12.0-16.0 Hct (test code = 66381-1) 36.7 % 36.0-48.0 MCV (test code = 787-2) 97.6 fL 80.0-98.0 MCH; Above High Threshold (t est code = 785-6) 33.5 pg 27.0-31.0 MCHC (test code = 786-4) 34.3 g/dl 32.0-36.0 RDW (test code = 788-0) 13.8 % 11.5-14.5 Platelet (test code = 56897-3) 262 {K/CMM} 133-450 Mean Platelet Volume (test c ode = 52272-4) 7.6 fL 7.4-10.4 [facility][QL] [id number] 12:12:01* Test Item Value Reference Range Interpretation Comme nts Segmented Neutrophils (test code = 59624-1) 68.8 % 45.0-75.0 Monocytes (test code = 24937-5) 8.7 % 2.0-12.0 Lymphocytes (test code = 49803-8) 20.5 % 20.0-40.0 Eosinophils (test code = 11468-8) 1.4 % 0.0-4.0 Basophils (test code = 706-2) 0.6 % 0.0-1.0 Segs-Bands # (test code = 34501-6) 4.7 {K/CMM} 1.5-8.1 Lymphocytes # (test code = 32146-8) 1.4 {K/CMM} 1.0-5.5 Monocytes # (test code = 34419-5) 0.6 {K/CMM} 0.0-0.8 Eosinophils # (test code = 42572-6) 0.1 {K/CMM} 0.0-0.5 [facility][QL[facility]] CMP [id number] 12:12:01* Test Item Value Reference Range Interpretation Comme nts Sodium Level (test code = 2951-2) 140 {mEq/l} 135-145 Potassium Level (test code = 2823-3) 4.2 {mEq/l} 3.5-5.1 Chloride Level (test code = 2075-0) 104 {mEq/l} 95-109 Carbon Dioxide (test code = 2027-9) 28 {mEq/l} 24-32 AGAP (test code = 35169-4) 12.2 {mEq/l} 10.0-20.0 Glucose Lvl (test code = 2345-7) 86 mg/dl 70-99 Adult reference range values reflect the clinical guidelinesof the [place] Diabetes Association. Creatinine Lvl (test code = 2160-0) 1.00 mg/dl 0.50-1.40 Blood Urea Nitrogen; Above High Threshold (test code = 3094-0) 24 mg/dl 7-22 BUN/Creatinine Ratio (test code = 3097-3) 24 6-25 Total Protein (test code = 2885-2) 7.4 g/dl 6.4-8.4 Albumin Lvl (test code = 1751-7) 4.1 g/dl 3.5-5.0 Globulin (test code = 69539-6) 3.3 g/dl 2.7-4.2 A/G Ratio (test code = 1759-0) 1.2 0.7-1.6 Calcium Level Total (test code = 75862-8) 9.3 mg/dl 8.5-10.5 ALT (test code = 1743-4) 16 u/l 0-65 AST (test code = 54384-3) 16 u/l 0-37 Bili Total (test code = 1974-) 0.6 mg/dl 0.2-1.3 Alk Phos (test code = 1783-0) 106 u/l 39-136 eGFR (test code = 39888-2) 54 {ML/MIN/1.7} The eGFR is calculat ed using the CKD-EPI formula. In most young, healthyindividuals the eGFR will be >90 mL/min/1.73m2. The eGFR declines with age. AneGFR of 60-89 may be normal in some populations, particularly the elderly, forwhom the CKD-EPI formula has not been extensively validated. Use of the eGFR isnot recommended in the following populations:Individuals with unstable creatinine concentrations, including patients and those with serious co-morbid conditions.Patients with extremes in muscle mass or diet.The data above are obtained from the National Kidney Disease Education Program(NKDEP) which additionally recommends that when the eGFR is used in patientswith extremes of body mass index for purposes of drug dosing, the eGFR shouldbe multiplied by the estimated BMI. [facility]] C-REACTIVE [id number] 12:12:01* Test Item Value Reference Range Interpretation Comme nts CRP (test code = CRP) 7.2 mg/L <=2.9 [facility]] SED RATE BY MODIFIED [id number] 12:12:01* Test Item Value Reference Range Interpretation Comme nts Sedimentation Rate; Above Hi gh Threshold (test code = 52074-7) 50 {mm/hr} 0-20 [facility]] CMP [id number] 12:10:01* Test Item Value Reference Range Interpretation Comme nts Sodium Level (test code = 2951-2) 143 {mEq/l} 135-145 Potassium Level (test code = 2823-3) 3.8 {mEq/l} 3.5-5.1 Chloride Level (test code = 2075-0) 108 {mEq/l} 95-109 Carbon Dioxide (test code = 2027-9) 29 {mEq/l} 24-32 AGAP; Below Low Threshold (test code = 47278-1) 9.8 {mEq/l} 10.0-20.0 Glucose Lvl (test code = 2345-7) 87 mg/dl 70-99 Adult reference range values reflect the clinical guidelinesof the [place] Diabetes Association. Creatinine Lvl (test code = 2160-0) 1.00 mg/dl 0.50-1.40 Blood Urea Nitrogen (test code = 3094-0) 19 mg/dl 7-22 BUN/Creatinine Ratio (test code = 3097-3) 19 6-25 Total Protein (test code = 2885-2) 7.6 g/dl 6.4-8.4 Albumin Lvl (test code = 1751-7) 3.8 g/dl 3.5-5.0 Globulin (test code = 93878-7) 3.8 g/dl 2.7-4.2 A/G Ratio (test code = 1759-0) 1.0 0.7-1.6 Calcium Level Total (test code = 82628-2) 9.1 mg/dl 8.5-10.5 ALT (test code = 1743-4) 17 u/l 0-65 AST (test code = 58413-3) 15 u/l 0-37 Bili Total (test code = 1975-2) 0.7 mg/dl 0.2-1.3 Alk Phos (test code = 1783-0) 101 u/l 39-136 eGFR (test code = 86852-2) 54 {ML/MIN/1.7} The eGFR is calculat ed using the CKD-EPI formula. In most young, healthyindividuals the eGFR will be >90 mL/min/1.73m2. The eGFR declines with age. AneGFR of 60-89 may be normal in some populations, particularly the elderly, forwhom the CKD-EPI formula has not been extensively validated. Use of the eGFR isnot recommended in the following populations:Individuals with unstable creatinine concentrations, including patients and those with serious co-morbid conditions.Patients with extremes in muscle mass or diet.The data above are obtained from the National Kidney Disease Education Program(NKDEP) which additionally recommends that when the eGFR is used in patientswith extremes of body mass index for purposes of drug dosing, the eGFR shouldbe multiplied by the estimated BMI. [facility]] C-REACTIVE [id number] 12:10:01* Test Item Value Reference Range Interpretation Comme nts CRP (test code = CRP) 4.5 mg/L <=2.9 [facility]] CBC (INCLUDES DIFF/PLT)2018-10-27 12:10:01* Test Item Value Reference Range Interpretation Comme nts WBC (test code = 6690-2) 6.1 {K/CMM} 3.7-10.4 RBC; Below Low Threshold (te st code = 789-8) 3.80 {M/CMM} 4.20-5.40 Hgb (test code = 718-7) 12.6 g/dl 12.0-16.0 Hct (test code = 57476-4) 36.6 % 36.0-48.0 MCV (test code = 787-2) 96.3 fL 80.0-98.0 MCH; Above High Threshold (t est code = 785-6) 33.3 pg 27.0-31.0 MCHC (test code = 786-4) 34.5 g/dl 32.0-36.0 RDW (test code = 788-0) 13.6 % 11.5-14.5 Platelet (test code = 43935-4) 275 {K/CMM} 133-450 Mean Platelet Volume (test c ode = 29158-8) 7.7 fL 7.4-10.4 [facility][QL] [id number] 12:10:01* Test Item Value Reference Range Interpretation Comme nts Segmented Neutrophils (test code = 06279-7) 71.7 % 45.0-75.0 Monocytes (test code = 48502-4) 6.0 % 2.0-12.0 Lymphocytes (test code = 14551-0) 20.5 % 20.0-40.0 Eosinophils (test code = 34400-0) 1.1 % 0.0-4.0 Basophils (test code = 706-2) 0.7 % 0.0-1.0 Segs-Bands # (test code = 88210-3) 4.4 {K/CMM} 1.5-8.1 Lymphocytes # (test code = 75024-8) 1.3 {K/CMM} 1.0-5.5 Monocytes # (test code = 22351-4) 0.4 {K/CMM} 0.0-0.8 Eosinophils # (test code = 77080-7) 0.1 {K/CMM} 0.0-0.5 [facility][QL[facility]] SED RATE BY MODIFIED [id number] 12:10:01* Test Item Value Reference Range Interpretation Comme nts Sedimentation Rate; Above Hi gh Threshold (test code = 81302-5) 43 {mm/hr} 0-20 [facility][QL[facility]] CBC (INCLUDES DIFF/PLT)2018-06-29 12:13:01* Test Item Value Reference Range Interpretation Comme nts WBC (test code = 6690-2) 6.4 {K/CMM} 3.7-10.4 RBC; Below Low Threshold (te st code = 789-8) 3.85 {M/CMM} 4.20-5.40 Hgb (test code = 718-7) 12.7 g/dl 12.0-16.0 Hct (test code = 90032-1) 37.7 % 36.0-48.0 MCV; Above High Threshold (t est code = 787-2) 98.1 fL 80.0-98.0 MCH; Above High Threshold (t est code = 785-6) 33.1 pg 27.0-31.0 MCHC (test code = 786-4) 33.7 g/dl 32.0-36.0 RDW (test code = 788-0) 13.6 % 11.5-14.5 Platelet (test code = 81428-4) 266 {K/CMM} 133-450 Mean Platelet Volume (test c ode = 23606-4) 8.1 fL 7.4-10.4 [facility][QL] [id number] 12:13:01* Test Item Value Reference Range Interpretation Comme nts Segmented Neutrophils (test code = 21395-7) 67.4 % 45.0-75.0 Monocytes (test code = 70364-8) 8.1 % 2.0-12.0 Lymphocytes (test code = 91221-0) 22.7 % 20.0-40.0 Eosinophils (test code = 25180-2) 1.1 % 0.0-4.0 Basophils (test code = 706-2) 0.7 % 0.0-1.0 Segs-Bands # (test code = 48034-9) 4.3 {K/CMM} 1.5-8.1 Lymphocytes # (test code = 06195-1) 1.4 {K/CMM} 1.0-5.5 Monocytes # (test code = 44577-4) 0.5 {K/CMM} 0.0-0.8 Eosinophils # (test code = 89534-6) 0.1 {K/CMM} 0.0-0.5 [facility][QL] SED RATE BY MODIFIED [id number] 12:13:01* Test Item Value Reference Range Interpretation Comme nts Sedimentation Rate; Above Hi gh Threshold (test code = 55565-2) 45 {mm/hr} 0-20 [facility]] CMP [id number] 12:13:01* Test Item Value Reference Range Interpretation Comme nts Sodium Level (test code = 2951-2) 139 {mEq/l} 135-145 Potassium Level (test code = 2823-3) 4.5 {mEq/l} 3.5-5.1 Chloride Level (test code = 5-0) 102 {mEq/l} 95-109 Carbon Dioxide (test code = 2027-9) 29 {mEq/l} 24-32 AGAP (test code = 90716-8) 12.5 {mEq/l} 10.0-20.0 Glucose Lvl (test code = 2345-7) 78 mg/dl 70-99 Adult reference range values reflect the clinical guidelinesof the [place] Diabetes Association. Creatinine Lvl (test code = 2160-0) 1.00 mg/dl 0.50-1.40 Blood Urea Nitrogen (test code = 3094-0) 22 mg/dl 7-22 BUN/Creatinine Ratio (test code = 3097-3) 22 6-25 Total Protein (test code = 2885-2) 7.9 g/dl 6.4-8.4 Albumin Lvl (test code = 1751-7) 4.2 g/dl 3.5-5.0 Globulin (test code = 57778-3) 3.7 g/dl 2.7-4.2 A/G Ratio (test code = 1759-0) 1.1 0.7-1.6 Calcium Level Total (test code = 39602-9) 9.2 mg/dl 8.5-10.5 ALT (test code = 1743-4) 19 u/l 0-65 AST (test code = 67816-2) 19 u/l 0-37 Bili Total (test code = 1974-) 0.8 mg/dl 0.2-1.3 Alk Phos (test code = 1783-0) 103 u/l 39-136 eGFR (test code = 58922-1) 55 {ML/MIN/1.7} The eGFR is calculat ed using the CKD-EPI formula. In most young, healthyindividuals the eGFR will be >90 mL/min/1.73m2. The eGFR declines with age. AneGFR of 60-89 may be normal in some populations, particularly the elderly, forwhom the CKD-EPI formula has not been extensively validated. Use of the eGFR isnot recommended in the following populations:Individuals with unstable creatinine concentrations, including patients and those with serious co-morbid conditions.Patients with extremes in muscle mass or diet.The data above are obtained from the National Kidney Disease Education Program(NKDEP) which additionally recommends that when the eGFR is used in patientswith extremes of body mass index for purposes of drug dosing, the eGFR shouldbe multiplied by the estimated BMI. [facility]] C-REACTIVE [id number] 12:13:01* Test Item Value Reference Range Interpretation Comme nts CRP (test code = CRP) <2.9 <=2.9 [facility]] CBC (INCLUDES DIFF/PLT)2018-03-02 12:34:01* Test Item Value Reference Range Interpretation Comme nts WBC (test code = 6690-2) 6.2 {K/CMM} 3.7-10.4 RBC; Below Low Threshold (te st code = 789-8) 3.53 {M/CMM} 4.20-5.40 Hgb; Below Low Threshold (te st code = 718-7) 11.5 g/dl 12.0-16.0 Hct; Below Low Threshold (te st code = 30107-6) 33.9 % 36.0-48.0 MCV (test code = 787-2) 95.9 fL 80.0-98.0 MCH; Above High Threshold (t est code = 785-6) 32.7 pg 27.0-31.0 MCHC (test code = 786-4) 34.0 g/dl 32.0-36.0 RDW (test code = 788-0) 13.6 % 11.5-14.5 Platelet (test code = 93185-9) 287 {K/CMM} 133-450 Mean Platelet Volume (test c ode = 66864-3) 7.7 fL 7.4-10.4 [facility]] [id number] 12:34:01* Test Item Value Reference Range Interpretation Comme nts Segmented Neutrophils (test code = 44164-0) 62.8 % 45.0-75.0 Monocytes (test code = 41162-4) 7.2 % 2.0-12.0 Lymphocytes (test code = 12371-5) 28.1 % 20.0-40.0 Eosinophils (test code = 09034-1) 1.3 % 0.0-4.0 Basophils (test code = 706-2) 0.6 % 0.0-1.0 Segs-Bands # (test code = 25602-0) 3.9 {K/CMM} 1.5-8.1 Lymphocytes # (test code = 38704-0) 1.7 {K/CMM} 1.0-5.5 Monocytes # (test code = 84285-4) 0.4 {K/CMM} 0.0-0.8 Eosinophils # (test code = 51128-2) 0.1 {K/CMM} 0.0-0.5 [facility]] CMP [id number] 12:34:01* Test Item Value Reference Range Interpretation Comme nts Sodium Level (test code = 2951-2) 140 {mEq/l} 135-145 Potassium Level (test code = 2823-3) 4.2 {mEq/l} 3.5-5.1 Chloride Level (test code = 2075-0) 105 {mEq/l} 95-109 Carbon Dioxide (test code = 2027-9) 28 {mEq/l} 24-32 AGAP (test code = 94300-5) 11.2 {mEq/l} 10.0-20.0 Glucose Lvl (test code = 2345-7) 76 mg/dl 70-99 Adult reference range values reflect the clinical guidelinesof the [place] [employer]. Creatinine Lvl (test code = 2160-0) 1.10 mg/dl 0.50-1.40 Blood Urea Nitrogen; Above High Threshold (test code = 3094-0) 23 mg/dl 7-22 BUN/Creatinine Ratio (test code = 3097-3) 21 6-25 Total Protein (test code = 2885-2) 7.1 g/dl 6.4-8.4 Albumin Lvl (test code = 1751-7) 3.9 g/dl 3.5-5.0 Globulin (test code = 92310-8) 3.2 g/dl 2.7-4.2 A/G Ratio (test code = 1759-0) 1.2 0.7-1.6 Calcium Level Total (test code = 35677-1) 9.0 mg/dl 8.5-10.5 ALT (test code = 1743-4) 11 u/l 0-65 AST (test code = 35649-0) 13 u/l 0-37 Bili Total (test code = 1975-2) 0.6 mg/dl 0.2-1.3 Alk Phos (test code = 1783-0) 86 u/l 39-136 eGFR (test code = 26937-3) 49 {ML/MIN/1.7} The eGFR is calculat ed using the CKD-EPI formula. In most young, healthyindividuals the eGFR will be >90 mL/min/1.73m2. The eGFR declines with age. AneGFR of 60-89 may be normal in some populations, particularly the elderly, forwhom the CKD-EPI formula has not been extensively validated. Use of the eGFR isnot recommended in the following populations:Individuals with unstable creatinine concentrations, including patients and those with serious co-morbid conditions.Patients with extremes in muscle mass or diet.The data above are obtained from the National Kidney Disease Education Program(NKDEP) which additionally recommends that when the eGFR is used in patientswith extremes of body mass index for purposes of drug dosing, the eGFR shouldbe multiplied by the estimated BMI. [facility]] C-REACTIVE [id number] 12:34:01* Test Item Value Reference Range Interpretation Comme nts CRP (test code = CRP) <2.9 <=2.9 [facility]] SED RATE BY MODIFIED [id number] 12:34:01* Test Item Value Reference Range Interpretation Comme nts Sedimentation Rate; Above Hi gh Threshold (test code = 23119-6) 30 {mm/hr} 0-20 [facility]] Protein [id number] 12:34:01* Test Item Value Reference Range Interpretation Comme nts Albumin Percent (test code = Albumin Percent) 56.2 {REL %} 55.8-66.1 Alpha 1 Percent (test code = Alpha 1 Percent) 4.1 {REL %} 2.8-4.9 Alpha 2 Percent (test code = Alpha 2 Percent) 9.5 {REL %} 7.0-11.9 Beta Percent (test code = Beta Percent) 15.6 {REL %} 7.8-13.7 Gamma % (test code = Gamma %) 14.6 {REL %} 11.1-18.7 Albumin (SPE) (test code = Albumin (SPE)) 3.99 g/dl 3.57-5.55 Alpha 1 Globulin (test code = Alpha 1 Globulin) 0.29 g/dl 0.18-0.41 Alpha 2 Globulin (test code = 49826-2) 0.67 g/dl 0.45-1.00 Beta Globulin (test code = Beta Globulin) 1.11 g/dl 0.50-1.15 Gamma Globulin (test code = Gamma Globulin) 1.04 g/dl 0.71-1.57 Total Protein (SPE) (test code = 2885-2) 7.1 g/dl 6.4-8.4 SPE Interpretation (test code = SPE Interpretation) SEE NOTES Total protein an d serum albumin levels are within reference ranges. Allglobulin fractions are present in a normal distribution. No monoclonalproteins are identified. Serum capillary electrophoresis is withoutsignificant abnormalities. Interpretation performed at [facility].Electronic Signature Ginette Sabillon MD 03/04/18 1:17 PM [facility][H] Immunofixation [id number] 12:34:01* Test Item Value Reference Range Interpretation Comments Immunofixation Electrophoresis Pattern (test code = Immunofixation Electrophoresis Pattern) SEE NOTES Diffusely immuno reactive bands are noted in the IgG, IgA, IgM, kappa and lambdalanes. No monoclonal bands are identified. [facility] Immunofixation Electrophoresis Interpretation (test code = Immunofixation Electrophoresis Interpretation) SEE NOTES Serum immunofixa tion electrophoresis reveals a polyclonal pattern ofimmunoglobulins. No monoclonal proteins are identified. Interpretationperformed at [facility].Electronic Signature Ginette Sabillon MD 03/04/18 1:39 PM [facility]] SED RATE BY MODIFIED [id number] 14:50:01* Test Item Value Reference Range Interpretation Comme nts Sedimentation Rate (test cod e = Sedimentation Rate) 54 {mm/hr} 0-20 [facility]] CBC (INCLUDES DIFF/PLT)2017-10-27 14:50:01* Test Item Value Reference Range Interpretation Comme nts WBC (test code = WBC) 6.8 {K/CMM} 3.7-10.4 RBC (test code = RBC) 3.86 {M/CMM} 4.20-5.40 Hgb (test code = 70776-6) 12.2 g/dl 12.0-16.0 Hct (test code = 4544-3) 37.1 % 36.0-48.0 MCV (test code = MCV) 96.1 fL 80.0-98.0 MCH (test code = MCH) 31.7 pg 27.0-31.0 MCHC (test code = MCHC) 32.9 g/dl 32.0-36.0 RDW (test code = RDW) 14.3 % 11.5-14.5 Platelet (test code = 777-3) 309 {K/CMM} 133-450 Mean Platelet Volume (test c ode = Mean Platelet Volume) 7.9 fL 7.4-10.4 [facility]] [id number] 14:50:01* Test Item Value Reference Range Interpretation Comme nts Segmented Neutrophils (test code = 35590-8) 65.7 % 45.0-75.0 Monocytes # (test code = 57946-5) 0.4 {K/CMM} 0.0-0.8 Lymphocytes (test code = Lymphocytes) 25.5 % 20.0-40.0 Eosinophils # (test code = 69566-7) 0.1 {K/CMM} 0.0-0.5 Basophils # (test code = 80419-6) 0.1 {K/CMM} 0.0-0.2 Segs-Bands # (test code = 20901-4) 4.5 {K/CMM} 1.5-8.1 Lymphocytes # (test code = 88622-0) 1.7 {K/CMM} 1.0-5.5 [facility]] CMP [id number] 14:50:01* Test Item Value Reference Range Interpretation Comme nts Sodium Level (test code = Sodium Level) 140 {mEq/l} 135-145 Potassium Level (test code = Potassium Level) 4.1 {mEq/l} 3.5-5.1 Chloride Level (test code = Chloride Level) 103 {mEq/l} 95-109 Carbon Dioxide (test code = Carbon Dioxide) 28 {mEq/l} 24-32 AGAP (test code = AGAP) 13.1 {mEq/l} 10.0-20.0 Glucose Lvl (test code = Glucose Lvl) 92 mg/dl 70-99 Adult reference range values reflect the clinical guidelinesof the [place] Diabetes Association. Creatinine Lvl (test code = Creatinine Lvl) 1.00 mg/dl 0.50-1.40 Blood Urea Nitrogen (test code = Blood Urea Nitrogen) 23 mg/dl 7-22 BUN/Creatinine Ratio (test code = BUN/Creatinine Ratio) 23 6-25 Total Protein; Above High Threshold (test code = 82785-2) 8.8 g/dl 6.4-8.4 Albumin Lvl (test code = 1751-7) 4.2 g/dl 3.5-5.0 Globulin (test code = Globulin) 4.6 g/dl 2.7-4.2 A/G Ratio (test code = A/G Ratio) 0.9 0.7-1.6 Calcium Level Total (test code = Calcium Level Total) 9.6 mg/dl 8.5-10.5 ALT (test code = 1742-6) 28 u/l 0-65 AST (test code = 1916-6) 19 u/l 0-37 Bili Total (test code = 30770-3) 0.7 mg/dl 0.2-1.3 Alk Phos (test code = 1783-0) 85 u/l 39-136 eGFR (test code = eGFR) 55 {ML/MIN/1.7} The eGFR is calculat ed using the CKD-EPI formula. In most young, healthyindividuals the eGFR will be >90 mL/min/1.73m2. The eGFR declines with age. AneGFR of 60-89 may be normal in some populations, particularly the elderly, forwhom the CKD-EPI formula has not been extensively validated. Use of the eGFR isnot recommended in the following populations:Individuals with unstable creatinine concentrations, including patients and those with serious co-morbid conditions.Patients with extremes in muscle mass or diet.The data above are obtained from the National Kidney Disease Education Program(NKDEP) which additionally recommends that when the eGFR is used in patientswith extremes of body mass index for purposes of drug dosing, the eGFR shouldbe multiplied by the estimated BMI. [facility]ob[facility] Use [id number] 20:30:00* Test Item Value Reference Range Interpretation Comme nts Completed (test code = Completed) DONE [facility]
[2024-03-10] MEDS ORDERED: predniSONE 20 MG TAB ONE (13:12)
[2024-03-10] MEDS ORDERED: HYDROCODONE/APAP 5/325 MG TAB ONE (13:12)
--- NOTE | 2024-03-10 14:59 | RAD REPORT ---
EXAM DESCRIPTION: CT - Spine Lumbar Wo Con - 03/10/2024 1:05 pm CLINICAL HISTORY: NUMBNESS/TINGLING COMPARISON: No comparisons TECHNIQUE: Axial noncontrast CT imaging of the lumbar spine was performed with coronal and sagittal re-formatted images. All CT scans are performed using dose optimization technique as appropriate and may include automated exposure control or mA/KV adjustment according to patient size. FINDINGS: No acute lumbar spine fracture seen. No aggressive marrow pattern. Grade 1 retrolisthesis of L4 over L5, measuring 4 mm. Paraspinal tissues are normal in thickness. No paraspinal abscess or hematoma seen. Intervertebral disc disease assessment is inherently limited by CT. Within these limitations, no high -grade canal stenosis suspected. Posterior disc bulges at L1-2, L4-5, and L5-S1. Mild bilateral neur al foraminal narrowing at L5-S1, and at L4-5 more so on the right. Moderate right and wfro-ek-kybotnm e left neural foraminal narrowing at L1-2. Intramural fat deposition along the sacrum and proximal ascending colon, nonspecific. Status post cho lecystectomy. IMPRESSION: No acute fracture or subluxation. . Up to moderate degenerative changes as above. Please consider MRI follow-up for assessment of disc di sease if clinically desired.
--- NOTE | 2024-03-10 15:10 | EDPHYS ---
Physician Documentation [facility] Name: Magaly Enrique Age: 83 yrs Sex: Female : 1940 Arrival Date: 03/10/2024 Time: 11:45 Bed 7 Private MD: ED Physician Bernadette Bateman HPI: 03/10 13:07 This 83 yrs old Female presents to ER via Wheelchair with complaints of Hip sp3 Pain, Flank Pain. 13:07 83-year-old female with history of rheumatoid arthritis on methotrexate and meloxicam sp3 now presents to the ED with chief complaint left hip pain and left lower extremity radiculopathy. Symptoms have been going on for 4 to 5 days with the radiculopathy starting yesterday. She denies any trauma, fall or prior symptoms. No other extremity pain, numbness or weakness, speech changes, mental status changes, memory loss or other neurological symptoms. She also denies headache, neck pain, chest pain, shortness of breath, back pain, abdominal pain, nausea, vomiting, diarrhea, syncope, near syncope, rash, bleeding, or any other signs or symptoms on ROS at this time.. Historical: - Allergies: 12:12 No Known Allergies; ss - PMHx: 12:12 Rheumatoid arthritis; ss - Immunization history:: Client reports receiving the 2nd dose of the Covid vaccine. - Infectious Disease History:: Denies. - Social history:: Smoking status: Patient denies any tobacco usage or history of. ROS: 13:08 Constitutional: Negative for fever, chills, and weight loss, Eyes: Negative for injury, sp3 pain, redness, and discharge, Neck: Negative for injury, pain, and swelling, Cardiovascular: Negative for chest pain, palpitations, and edema, Respiratory: Negative for shortness of breath, cough, wheezing, and pleuritic chest pain, Abdomen/GI: Negative for abdominal pain, nausea, vomiting, diarrhea, and constipation, Skin: Negative for injury, rash, and discoloration, Psych: Negative for depression, anxiety, suicide ideation, homicidal ideation, and hallucinations, Allergy/Immunology: Negative for hives, rash, and allergies, Endocrine: Negative for neck swelling, polydipsia, polyuria, polyphagia, and marked weight changes, Hematologic/Lymphatic: Negative for swollen nodes, abnormal bleeding, and unusual bruising, 13:08 All other systems are negative, Exam: 13:08 Constitutional: This is a well developed, well nourished patient who is awake, alert, sp3 and in no acute distress. Head/Face: Normocephalic, atraumatic. Eyes: Pupils equal round and reactive to light, extra-ocular motions intact. Lids and lashes normal. Conjunctiva and sclera are non-icteric and not injected. Cornea within normal limits. Periorbital areas with no swelling, redness, or edema. Neck: Trachea midline, no thyromegaly or masses palpated, and no cervical lymphadenopathy. Supple, full range of motion without nuchal rigidity, or vertebral point tenderness. No Meningismus. Chest/axilla: Normal chest wall appearance and motion. Nontender with no deformity. No lesions are appreciated. Cardiovascular: Regular rate and rhythm with a normal S1 and S2. No gallops, murmurs, or rubs. Normal PMI, no JVD. No pulse deficits. Respiratory: Lungs have equal breath sounds bilaterally, clear to auscultation and percussion. No rales, rhonchi or wheezes noted. No increased work of breathing, no retractions or nasal flaring. Abdomen/GI: Soft, non-tender, with normal bowel sounds. No distension or tympany. No guarding or rebound. No evidence of tenderness throughout. Skin: Warm, dry with normal turgor. Normal color with no rashes, no lesions, and no evidence of cellulitis. Neuro: Awake and alert, GCS 15, oriented to person, place, time, and situation. Cranial nerves II-XII grossly intact. Motor strength 5/5 in all extremities. Sensory grossly intact. Cerebellar exam normal. Normal gait. Psych: Awake, alert, with orientation to person, place and time. Behavior, mood, and affect are within normal limits. 13:08 Musculoskeletal/extremity: Pain on straight leg raise on the left lower extremity at 45 degrees.. Vital Signs: 12:10 BP 134 / 59; Pulse 68; Resp 16; Temp 97.7(O); Pulse Ox 100% on R/A; Weight 51.26 kg; ss Height 4 ft. 11 in. ; Pain 8/10; 15:12 BP 130 / 64; Pulse 70; Resp 17; Pulse Ox 99% on R/A; rs5 12:10 Body Mass Index 22.82 (51.26 kg, 149.86 cm) ss 12:10 Pain Scale: Adult ss MDM: 12:42 Patient medically screened. sp3 13:09 Data reviewed: vital signs, nurses notes, radiologic studies. ED course: 83-year-old sp3 female with left lower extremity radiculopathy and left hip pain. Differential diagnosis includes musculoskeletal strain, sciatica, intervertebral disc disease, among others. I am not highly suspicious for vascular etiology, sepsis, shock, or other critical process. Vital signs are within normal limits. Patient is in no acute distress. Workup will include CT scan of the hip and lumbar spine to indirectly assess disc heights. P.o. Askov and prednisone for symptomatic control. If workup is negative, we will safely discharge patient home with PCP and/or orthopedic and/or spine follow-up for outpatient MRI and continued workup.. 15:04 ED course: Imaging demonstrates degenerative changes without any critical findings. sp3 Outpatient MRI indicated and we will safely discharge patient home on p.o. prednisone in addition to the medications she is already taking which include methotrexate and meloxicam NSAID.. 03/10 12:53 Order name: CT Lumbar Spine Wo Con; Complete Time: 15:00 sp3 03/10 13:04 Order name: Pelvis Wo Cont; Complete Time: 15:15 EDMS Administered Medications: 13:10 Drug: Askov PO 5 mg-325 mg 2 tabs PO once Route: PO; rs5 14:00 Follow up: Response: No adverse reaction; Pain is decreased rs5 13:10 Drug: predniSONE PO 40 mg PO once Route: PO; rs5 14:00 Follow up: Response: No adverse reaction rs5 Disposition Summary: 03/10/24 15:04 Discharge Ordered Notes: Location: Home sp3 Condition: Stable sp3 Diagnosis - Left lower extremity radiculopathy, low back pain sp3 Followup: sp3 - With: Private Physician - When: Upon discharge from the Emergency Department - Reason: Continuance of care Discharge Instructions: - Discharge Summary Sheet sp3 - Lumbosacral Radiculopathy sp3 Forms: - Medication Reconciliation Form sp3 - Antibiotic Education sp3 - Prescription Opioid Use sp3 - Patient Portal Instructions sp3 - Leadership Thank You Letter sp3 Prescriptions: - Prednisone 20 mg Oral Tablet - take 2 tablets ORAL route once daily for 5 days; 10 tablet; Refills: 0, Product sp3 Selection Permitted Signatures: Dispatcher [employer] Love Myles, RN RN ss Berndaette Bateman MD MD sp3 Emmanuel Raman RN RN rs5
--- NOTE | 2024-03-10 15:10 | ER ---
Nurse's Notes [facility] Name: Magaly Enrique Age: 83 yrs Sex: Female : 1940 Arrival Date: 03/10/2024 Time: 11:45 Bed 7 Private MD: Diagnosis: Left lower extremity radiculopathy, low back pain Presentation: 03/10 12:10 Chief complaint: Patient states: Pain to L hip/ buttock that radiates down L leg since ss Friday. Coronavirus screen: Client denies travel out of the [place] in the last 14 days. Ebola Screen: Patient denies exposure to infectious person. Patient denies travel to an Ebola-affected area in the 21 days before illness onset. Initial Sepsis Screen: Does the patient meet any 2 criteria? No. Patient's initial sepsis screen is negative. Does the patient have a suspected source of infection? No. Patient's initial sepsis screen is negative. Risk Assessment: Do you want to hurt yourself or someone else? Patient reports no desire to harm self or others. Onset of symptoms was March 07, 2024. 12:10 Method Of Arrival: Wheelchair ss 12:10 Acuity: SHAGGY 3 ss Triage Assessment: 12:12 General: Appears in no apparent distress. comfortable, Behavior is calm, cooperative. ss Historical: - Allergies: 12:12 No Known Allergies; ss - PMHx: 12:12 Rheumatoid arthritis; ss - Immunization history:: Client reports receiving the 2nd dose of the Covid vaccine. - Infectious Disease History:: Denies. - Social history:: Smoking status: Patient denies any tobacco usage or history of. Screenin:33 [facility] ED Fall Risk Assessment (Adult) History of falling in the last 3 months, rs5 including since admission No falls in past 3 months (0 pts) Confusion or Disorientation No (0 pts) Intoxicated or Sedated No (0 pts) Impaired Gait Yes (1 pt) Mobility Assist Device Used Yes (1 pt) Altered Elimination No (0 pt) Score/Fall Risk Level 0 - 2 = Low Risk Oriented to surroundings, Maintained a safe environment. Abuse screen: Denies threats or abuse. Nutritional screening: No deficits noted. Tuberculosis screening: No symptoms or risk factors identified. Assessment: 12:45 General: Appears in no apparent distress. comfortable, Behavior is calm, cooperative, nj1 appropriate for age. Pain: Complains of pain in hip, left Pain radiates to left leg. Neuro: Level of Consciousness is awake, alert, obeys commands, Oriented to person, place, time, situation. 12:45 Cardiovascular: Patient's skin is warm and dry. Respiratory: Airway is patent nj1 Respiratory effort is even, unlabored. Musculoskeletal: Reports pain in hip, left since friday. 13:59 Reassessment: Patient appears in no apparent distress at this time. Patient and/or nj1 family updated on plan of care and expected duration. Pain level reassessed. Patient is alert, oriented x 3, equal unlabored respirations, skin warm/dry/pink. Pt able to ambulate with her family's assist. 15:11 Reassessment: Patient and/or family updated on plan of care and expected duration. Pain rs5 level reassessed. Patient is alert, oriented x 3, equal unlabored respirations, skin warm/dry/pink. Patient states feeling better. Vital Signs: 12:10 BP 134 / 59; Pulse 68; Resp 16; Temp 97.7(O); Pulse Ox 100% on R/A; Weight 51.26 kg; ss Height 4 ft. 11 in. ; Pain 8/10; 15:12 BP 130 / 64; Pulse 70; Resp 17; Pulse Ox 99% on R/A; rs5 12:10 Body Mass Index 22.82 (51.26 kg, 149.86 cm) ss 12:10 Pain Scale: Adult ss ED Course: 11:49 Patient arrived in ED. rg4 12:02 Bernadette Bateman MD is Attending Physician. sp3 12:12 Triage completed. ss 12:12 Arm band placed on right wrist. ss 12:13 Patient has correct armband on for positive identification. Bed in low position. Call rs5 light in reach. Side rails up X2. 12:40 Billie Wallace, GISELLA is Primary Nurse. nj1 13:05 Pelvis Wo Cont In Process Unspecified. EDMS 13:06 CT Lumbar Spine Wo Con In Process Unspecified. EDMS 15:12 No provider procedures requiring assistance completed. Patient did not have IV access rs5 during this emergency room visit. Administered Medications: 13:10 Drug: Blauvelt PO 5 mg-325 mg 2 tabs PO once Route: PO; rs5 14:00 Follow up: Response: No adverse reaction; Pain is decreased rs5 13:10 Drug: predniSONE PO 40 mg PO once Route: PO; rs5 14:00 Follow up: Response: No adverse reaction rs5 Medication: 15:12 VIS not applicable for this client. rs5 Outcome: 15:04 Discharge ordered by . sp3 15:21 Discharged to home ambulatory, ld1 15:21 Condition: stable 15:21 Discharge instructions given to patient, Instructed on discharge instructions, follow up and referral plans. Demonstrated understanding of instructions, follow-up care, medications, Prescriptions given X 1, 15:21 Patient left the ED. ld1 Signatures: Dispatcher [employer] EDMS Love Felipe RN RN ss Jolene Rdz rg4 Ashley Carrillo RN RN ld1 Bernadette Bateman MD MD sp3 Emmanuel Raman RN RN rs5 Billie Wallace RN RN nj1
--- NOTE | 2024-03-10 15:12 | RAD REPORT ---
EXAM DESCRIPTION: CT - Pelvis Wo Cont - 03/10/2024 1:05 pm CLINICAL HISTORY: PAIN COMPARISON: Spine Lumbar Wo Con dated 03/10/2024 TECHNIQUE: Thin cut axial CT imaging of the abdomen and pelvis was performed without IV contrast. Mu ltiplanar reformats were generated and reviewed. All CT scans are performed using dose optimization technique as appropriate and may include automated exposure control or mA/KV adjustment according to patient size. FINDINGS: No acute fracture or focal suspicious osseous lesion. Eocn-rp-joaigezb degenerative changes of the hip joints. Subchondral cyst along the anterosuperior le ft acetabulum. No dilated bowel loops or bowel wall thickening. Cecum and proximal ascending colon show intramural f at deposition, nonspecific. No free air, free fluid or inflammatory stranding. No hernia, mass or bul ky lymphadenopathy. The urinary bladder is suboptimally distended limiting evaluation. IMPRESSION: No acute findings or double-J pelvis. 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 Cecum and proximal ascending colon show intramural fat deposition, nonspecific, may reflect sequelae of prior inflammatory episodes.
[2024-03-10 15:32] VITALS: BP 130/64; TEMP 97.7; O2SAT 99
== END 2024-03-10 15:21 | disposition home or self-care (01) ==
LOC: ER 11:45
DX: M54.16 Radiculopathy, lumbar region (principal)
CPT/HCPCS: 72131; 72192; J7512